=== PATIENT | male | born 1945 | race Caucasian/White ===

== ENCOUNTER 2016-08-08 11:26 | Outpatient (CLI) | payer MEDICARE, OTHER | END 2016-08-08 11:27 | disposition critical access hospital (66) | LOC: EMS 11:26 | PROVIDERS: ATTEND Surgery | DX: R06.89 Other abnormalities of breathing (principal); T17.908A Unspecified foreign body in respiratory tract, part unspecified causing other injury, initial encounter | CPT/HCPCS: A0425; A0427 ==

== ENCOUNTER 2016-08-08 12:11 | Inpatient (IN) | payer MEDICARE, OTHER ==
--- NOTE | 2016-08-08 12:48 | ED Physician Documentation ---
PD HPI DYSPNEA - Stated complaint Stated Complaint: POSS ASPIRATION - Chief complaint Chief Complaint: Resp - History obtained from History obtained from: Patient (he is nonverbal due to dementia), Caregiver - History of Present Illness Timing - onset: How many days ago (he has had some cough and congestion for 4-5 days, with low temp yesterday. Some less appetite for few days. This morning had a coughing/choking episode about 5-10 minutes after eating and had congested sound and trouble breathing. Caregiver concerned for aspiration. He was having work of breathing and wheezing, and EMS noted his sats to be in 70s% initially. Improved on oxygen.) Timing - onset during: Rest (had just finished eating this morning when breathing worsened with coughing/choking symptoms.) Timing - details: Abrupt onset, Still present Inciting event(s): URI Associated symptoms: Fever, Cough, Wheezing. No: Hemoptysis, Palpitations, Bilateral edema Review of Systems Unable to obtain: Dementia, Other (info from caregiver) Constitutional: reports: Fever (yesterday) Respiratory: reports: Dyspnea, Cough GI: reports: Diarrhea (softer stool for 1-2 days). denies: Vomiting : reports: Incontinent Skin: denies: Rash, Lesions Neurologic: reports: Generalized weakness Endocrine: denies: Weight loss Immunocompromised: denies: Immunocompromised PD PAST MEDICAL HISTORY - Past Medical History Respiratory: Pneumonia Neuro: Dementia, Head injury Psych: Anxiety Musculoskeletal: Chronic back pain - Past Surgical History Past Surgical History: No - Present Medications Home Medications: Ambulatory Orders Medication Instructions Recorded Confirmed Donepezil HCl [Aricept] 10 mg PO DAILY 06/08/14 08/08/16 Bacillus Coagulans [Probiotic] 1 cap PO DAILY 01/27/16 08/08/16 Sennosides [Senna] 8.6 mg PO DAILY 01/27/16 08/08/16 - Allergies Allergies/Adverse Reactions: Allergies Allergy/AdvReac Type Severity Reaction Status Date / Time No Known Drug Allergies Allergy Verified 01/27/16 20:29 - Social History Does the pt smoke?: No Smoking Status: Never smoker Does the pt drink ETOH?: No Does the pt have substance abuse?: No - Immunizations Immunizations are current?: Yes - POLST Patient has POLST: Yes PD ED PE NORMAL - Vitals Vital signs reviewed: Yes - General General: Well developed/nourished, Other (anxious and shaky currently; nonverbal at baseline.) - HEENT HEENT: Pharynx benign - Neck Neck: Supple, no meningeal sign, No adenopathy - Cardiac Cardiac: No murmur. No: RRR (regular but tachy. tachy but regular) - Respiratory Respiratory: No: Clear bilaterally (coarse on right with scattered diffuse wheezing. Fast breathing but no retractions. ) - Abdomen Abdomen: Soft, Non tender - Derm Derm: Normal color, Warm and dry - Extremities Extremities: Normal ROM s pain, No edema, No calf tenderness / cord - Neuro Neuro: No motor deficit, No sensory deficit. No: Normal speech - Psych Psych: No: Normal affect (flat) Results - Vitals Vitals: Vital Signs - 24 hr 08/08/16 08/08/16 08/08/16 12:08 13:34 14:12 Temperature 37.1 C Heart Rate 124 H 129 H 131 H Respiratory 18 20 30 H Rate Blood Pressure 125/68 147/93 H O2 Saturation 90 L 94 Oxygen O2 Source [With Activity] Room air O2 Source Nasal cannula Oxygen Flow Rate 4 - Labs Labs: Laboratory Tests 08/08/16 08/08/16 13:30 13:30 WBC 10.7 RBC 4.89 Hgb 15.1 Hct 44.8 MCV 91.6 MCH 30.8 MCHC 33.6 RDW 12.9 Plt Count 303 MPV 8.0 Neut # 8.1 H Lymph # 2.0 Randolph # 0.3 Eos # 0.2 Baso # 0.1 Absolute Nucleated RBC 0.00 Nucleated RBCs 0.0 Sodium 140 Potassium 4.4 Chloride 101 Carbon Dioxide 26 Anion Gap 13.0 BUN 19 Creatinine 1.1 Estimated GFR (MDRD) 66 L Glucose 156 H Calcium 9.3 Total Bilirubin 0.8 AST 37 ALT 39 Alkaline Phosphatase 51 Total Protein 7.7 Albumin 4.2 Globulin 3.5 Albumin/Globulin Ratio 1.2 Lipase 62 H - Rads (name of study) chest Radiology: Prelim report reviewed, EMP read contemporaneously (significant infiltrates diffusely, mainly right, c/w atypical pneumonia or aspiration pneumonitis. ) PD MEDICAL DECISION MAKING - ED course Complexity details: considered differential (Likely has CAP or recent aspiration with pneumonia this past week and now new episode of aspiration clinically. Has low sats initially but improved with neb and oxygen. Resting easy and lungs are clearer sounding. However, does have significant infiltrates. Even though labs are good, I think he is going to be worse later today and had low sats coming to ED. ), d/w patient, d/w mergers and acquisitions consultant (Dr. Barry) Departure - Departure Disposition: 66 [facility] DC/Xfer Clinical Impression: Hypoxia Pneumonia Qualifiers: Pneumonia type: due to unspecified organism Laterality: right Lung location: unspecified part of lung Qualified Code(s): J18.9 - Pneumonia, unspecified organism Aspiration pneumonia Qualifiers: Aspiration pneumonia type: unspecified Laterality: right Lung location: unspecified part of lung Qualified Code(s): J69.0 - Pneumonitis due to inhalation of food and vomit Dementia Qualifiers: Dementia type: unspecified type Dementia behavioral disturbance: without behavioral disturbance Qualified Code(s): F03.90 - Unspecified dementia without behavioral disturbance Condition: Stable Record reviewed to determine appropriate education?: Yes
[2016-08-08] MEDS ORDERED: DEXAMETHASONE 10 MG/ML VIAL IVP STA (12:58)
[2016-08-08] MEDS ORDERED: FAMOTIDINE 20 MG/50 ML 50 ML IV ONE ×2 (12:58→13:03)
[2016-08-08] MEDS ORDERED: IPRATROPIUM/ALBUTEROL 3 ML NEB INH STA (12:58)
[2016-08-08] MEDS ORDERED: cefTRIAXone 1 GM in SODIUM CHLORIDE 0.9% MINIBAG 100 ML IV STA (12:59)
[2016-08-08] MEDS ORDERED: DEXAMETHASONE 10 MG/ML VIAL ONE (13:03)
[2016-08-08] MEDS ORDERED: cefTRIAXone 1 GM VIAL ONE (13:03)
[2016-08-08] MEDS ORDERED: KETOROLAC 60 MG/2 ML VIAL IVP STA (13:13)
[2016-08-08] MEDS ORDERED: SODIUM CHLORIDE 0.9% 1,000 ML IV ONE (13:13)
[2016-08-08] MEDS ORDERED: ONDANSETRON 4 MG/2 ML VIAL ONE (13:14)
[2016-08-08] MEDS ORDERED: ONDANSETRON 4 MG/2 ML VIAL IVP STA (13:14)
[2016-08-08] MEDS ORDERED: IPRATROPIUM/ALBUTEROL 3 ML NEB INH ONE (13:24)
[2016-08-08] MEDS ORDERED: KETOROLAC 30 MG/ML VIAL ONE (13:35)
[2016-08-08 13:38] LABS: BASOPHILS # (AUTO) 0.1 10^3/uL (0.0-0.1); BASOPHILS % (AUTO) 0.8 %; EOSINOPHILS # (AUTO) 0.2 10^3/uL (0.0-0.7); EOSINOPHILS % (AUTO) 1.6 %; HCT - HEMATOCRIT 44.8 % (42.0-52.0); HGB - HEMOGLOBIN 15.1 g/dL (14.0-18.0); LYMPHOCYTES % (AUTO) 18.9 %; MEAN CORPUSCULAR HEMOGLOBIN 30.8 pg (27.0-31.0); MEAN CORPUSCULAR HGB CONC 33.6 g/dL (32.0-36.0); MEAN CORPUSCULAR VOLUME 91.6 fL (80.0-94.0); MONOCYTES # (AUTO) 0.3 10^3/uL (0.0-1.0); NEUTROPHILS # (AUTO) 8.1 10^3/uL (1.5-6.6); NEUTROPHILS % (AUTO) 75.7 %; RED BLOOD COUNT 4.89 10^6/uL (4.70-6.10); RED CELL DISTRIBUTION WIDTH 12.9 % (12.0-15.0); UNCORRECTED WHITE BLOOD COUNT 10.7 x10^3/uL; WHITE BLOOD COUNT 10.7 x10^3/uL (4.8-10.8)
[2016-08-08 13:58] LABS: ALBUMIN/GLOBULIN RATIO 1.2 (1.0-2.2); BILIRUBIN,TOTAL 0.8 mg/dL (0.2-1.0); CALCIUM 9.3 mg/dL (8.5-10.3); CREATININE 1.1 mg/dL (0.6-1.2); TOTAL PROTEIN 7.7 g/dL (6.7-8.2)
[2016-08-08 13:59] LABS: POTASSIUM 4.4 mmol/L (3.5-5.0)
--- NOTE | 2016-08-08 14:37 | XRAY Preliminary Report ---
Exam: XR Chest 1 View IMPRESSION: Extensive multifocal infiltrates, predominantly on the right; nodularity suggests viral o r mycoplasmal etiology. Cannot exclude aspiration. [facility] SITE ID: [id number]
--- NOTE | 2016-08-08 14:40 | XRAY Report ---
EXAM: CHEST RADIOGRAPHY EXAM DATE: 08/08/2016 02:18 PM. CLINICAL HISTORY: Cough, low oxygen saturation. COMPARISON: 01/27/2016. TECHNIQUE: 1 view. FINDINGS: Lungs/Pleura: Extensive infiltration throughout the right lung with mild nodularity. Minimal prominen ce of lung markings left base. No consolidation, definite effusion, or pneumothorax. Mediastinum: Within exam limitations, cardiomediastinal contour is normal. Upper lobe vessels not dis tended. Other: Old rib fractures. IMPRESSION: Extensive multifocal infiltrates, predominantly on the right; nodularity suggests viral o r mycoplasmal etiology. Cannot exclude aspiration. [facility] Referring Provider Line: [phone] SITE ID: [id number]
[2016-08-08] MEDS ORDERED: AZITHROMYCIN INJ 500 MG in SODIUM CHLORIDE 0.9% 250 ML IV STA (14:51)
[2016-08-08] MEDS ORDERED: SODIUM CHLORIDE FLUSH 0.9% 10 ML SYRINGE IVP PRN (15:28)
[2016-08-08] MEDS ORDERED: ALBUTEROL NEB 2.5 MG/3 ML INH STA (15:28)
[2016-08-08] MEDS ORDERED: ONDANSETRON ODT 4 MG TABLET TL PRN (15:51)
[2016-08-08] MEDS ORDERED: TEMAZEPAM 15 MG CAPSULE PO PRN (15:51)
[2016-08-08] MEDS ORDERED: ONDANSETRON 4 MG/2 ML VIAL IVP PRN (15:51)
[2016-08-08] MEDS ORDERED: ACETAMINOPHEN 325 MG TABLET PO PRN (15:51)
[2016-08-08] MEDS ORDERED: ALBUTEROL NEB 2.5 MG/3 ML INH ONE (16:04)
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
[2016-08-08] MEDS ORDERED: IPRATROPIUM/ALBUTEROL 3 ML NEB INH PRN (16:38)
[2016-08-08] MEDS ORDERED: SENNA 8.6 MG TABLET PO PRN (16:39)
[2016-08-08] MEDS: SODIUM CHLORIDE 0.9% 1,000 ML IV SCH (17:27)
[2016-08-08] MEDS: DONEPEZIL 5 MG TABLET PO SCH (21:06)
[2016-08-08] MEDS: SODIUM CHLORIDE FLUSH 0.9% 10 ML SYRINGE IVP SCH (21:07)
[2016-08-08] MEDS: ACETAMINOPHEN 500 MG TABLET PO SCH (21:07)
[2016-08-09] MEDS: SODIUM CHLORIDE 0.9% 1,000 ML IV SCH ×3 (02:41→22:58)
[2016-08-09] MEDS: SODIUM CHLORIDE FLUSH 0.9% 10 ML SYRINGE IVP SCH ×3 (05:19→20:49)
[2016-08-09] MEDS: PANTOPRAZOLE 40 MG TABLET PO SCH (06:08)
[2016-08-09] MEDS: ACETAMINOPHEN 500 MG TABLET PO SCH ×2 (09:52→20:48)
[2016-08-09] MEDS: POLYETHYLENE GLYCOL 3350 17 GM PACKET PO SCH (09:53)
[2016-08-09] MEDS: cefTRIAXone 1 GM in SODIUM CHLORIDE 0.9% MINIBAG 100 ML IV SCH (09:53)
[2016-08-09] MEDS: AZITHROMYCIN INJ 500 MG in SODIUM CHLORIDE 0.9% 250 ML IV SCH (10:49)
--- NOTE | 2016-08-09 12:24 | PROVIDER PROGRESS NOTE ---
Assessment/Plan - Problem List (1) CAP (community acquired pneumonia) Assessment/Plan: Improved on Antibiotics. No aspiration on swallow evaluation by clinical staff today. Afebrile. No sign of sepsis. Influenza negative. Plan: Continue antibiotics. Anticipate discharge 2 days (2) Dementia Qualifiers: Dementia type: other frontotemporal dementia Dementia behavioral disturbance: without behavioral disturbance Qualified Code(s): G31.09 - Other frontotemporal dementia; F02.80 - Dementia in other diseases classified elsewhere without behavioral disturbance Assessment/Plan: Continue home medications (3) Chronic pain Assessment/Plan: Controlled on current medications - Current Meds Current Meds: Current Medications Generic Name Dose Route Start Last Admin Trade Name Freq PRN Reason Stop Dose Admin Acetaminophen 1,000 mg 08/08/16 21:00 08/09/16 09:52 Tylenol PO 1,000 mg BID REYES Administration Donepezil HCl 10 mg 08/08/16 21:00 08/08/16 21:06 Aricept PO 10 mg QPM REYES Administration Sodium Chloride 1,000 mls @ 100 mls/hr 08/08/16 17:30 08/09/16 02:41 Normal Saline 0.9% IV 100 mls/hr .Q10H REYES Administration Azithromycin 500 mg/ Sodium 250 mls @ 250 mls/hr 08/09/16 10:00 08/09/16 10:49 Chloride IV 250 mls/hr DAILY@1000 REYES Administration Ceftriaxone Sodium 1 gm/ 100 mls @ 200 mls/hr 08/09/16 09:00 08/09/16 09:53 Sodium Chloride IV 200 mls/hr DAILY REYES Administration Pantoprazole Sodium 40 mg 08/09/16 07:00 08/09/16 06:08 Protonix PO Not Given QDAC REYES Polyethylene Glycol 17 gm 08/09/16 09:00 08/09/16 09:53 Miralax PO 17 gm DAILY REYES Administration Sodium Chloride 10 ml 08/08/16 22:00 08/09/16 05:19 Normal Saline Flush 0.9% IVP Not Given Q8HR REYES - Lab Result Lab results reviewed: Yes Fish Bone Diagrams: 08/08/16 13:30 08/08/16 13:30 - Diagnostic Imaging Results Diagnostic Imaging Results: positive: Final report reviewed - Additional Planning Condition/Complexity: Stable My Orders: My Active Orders 08/08/16 15:51 Acetaminophen [Tylenol] 650 mg PO Q4HR PRN Ondansetron Inj [Zofran Inj] 4 mg IVP Q6HR PRN Ondansetron Odt [Zofran Odt] 4 mg TL Q6HR PRN Temazepam [Restoril] 15 mg PO QPM PRN 08/08/16 15:57 SCDs [RC] QSHIFT 08/08/16 16:38 Ipratropium/Albuterol [Duoneb] 3 ml INH Q4HR PRN 08/08/16 16:39 Senna [Senokot] 8.6 mg PO DAILY PRN 08/08/16 17:30 Sodium Chloride 0.9% [Normal Saline 0.9%] 1,000 ml IV 100 mls/hr 08/08/16 20:52 RT [Nebulizer/MDI Tx.] [RC] QID 08/08/16 21:00 Acetaminophen [Tylenol] 1,000 mg PO BID Donepezil [Aricept] 10 mg PO QPM 08/09/16 07:00 Pantoprazole [Protonix] 40 mg PO QDAC 08/09/16 09:00 cefTRIAXone [Rocephin] 1 gm Sodium Chloride 0.9% Minibag [Normal Saline 0.9% Minibag] 100 ml IV DAILY 08/09/16 10:00 Azithromycin Inj [Zithromax Inj] 500 mg Sodium Chloride 0.9% [Normal Saline 0.9%] 250 ml IV DAILY@1000 08/09/16 Lunch DIET [Soft Mechanical Diet] [DIET] Time Spent: 15-30 minutes Subjective - Subjective Patient Reports: Other (Pt unable to communicate. Does not appear uncomfortable or dyspneaic.) Nursing Reports: Other (PAssed bedside swallow eval.) Objective Vital Signs: Vital Signs - 24 hr 08/08/16 08/08/16 08/08/16 16:06 16:12 17:10 Temperature 38.6 C H Heart Rate 121 H 111 H Heart Rate [ 109 H Brachial] Respiratory 24 16 16 Rate Blood Pressure 123/78 Blood Pressure 123/65 [Left Brachial artery] O2 Saturation 100 93 08/08/16 08/09/16 08/09/16 20:38 00:21 09:40 Temperature 37.0 C 37.9 C H 36.7 C Heart Rate Heart Rate [ 101 H 76 Brachial] Respiratory 20 24 Rate Blood Pressure Blood Pressure 115/65 124/74 [Left Brachial artery] O2 Saturation 96 95 96 Oxygen O2 Source Room air I&O (Last 24 Hrs): Intake and Output Totals x24h 08/07/16 08/08/16 08/09/16 23:59 23:59 23:59 Intake Total 426 Balance 426 General: Alert, No acute distress HEENT: PERRLA, EOMI Neck: No JVD Neuro: Disoriented, Other (nonverbal) Cardiovascular: Regular rate Respiratory: No respiratory distress Abdomen: Normal bowel sounds Extremities: No edema Skin: No breakdown - Results Results: Laboratory Results WBC 10.7 x10^3/uL (4.8-10.8) 08/08/16 13:30 RBC 4.89 10^6/uL (4.70-6.10) 08/08/16 13:30 Hgb 15.1 g/dL (14.0-18.0) 08/08/16 13:30 Hct 44.8 % (42.0-52.0) 08/08/16 13:30 MCV 91.6 fL (80.0-94.0) 08/08/16 13:30 MCH 30.8 pg (27.0-31.0) 08/08/16 13:30 MCHC 33.6 g/dL (32.0-36.0) 08/08/16 13:30 RDW 12.9 % (12.0-15.0) 08/08/16 13:30 Plt Count 303 10^3/uL (130-450) 08/08/16 13:30 MPV 8.0 fL (7.4-11.4) 08/08/16 13:30 Neut # 8.1 10^3/uL (1.5-6.6) H 08/08/16 13:30 Lymph # 2.0 10^3/uL (1.5-3.5) 08/08/16 13:30 [place] # 0.3 10^3/uL (0.0-1.0) 08/08/16 13:30 Eos # 0.2 10^3/uL (0.0-0.7) 08/08/16 13:30 Baso # 0.1 10^3/uL (0.0-0.1) 08/08/16 13:30 Absolute Nucleated RBC 0.00 x10^3/uL 08/08/16 13:30 Nucleated RBCs 0.0 /100WBC 08/08/16 13:30 Sodium 140 mmol/L (135-145) 08/08/16 13:30 Potassium 4.4 mmol/L (3.5-5.0) 08/08/16 13:30 Chloride 101 mmol/L (101-111) 08/08/16 13:30 Carbon Dioxide 26 mmol/L (21-32) 08/08/16 13:30 Anion Gap 13.0 (6-13) 08/08/16 13:30 BUN 19 mg/dL (6-20) 08/08/16 13:30 Creatinine 1.1 mg/dL (0.6-1.2) 08/08/16 13:30 Estimated GFR (MDRD) 66 (>89) L 08/08/16 13:30 Glucose 156 mg/dL (70-100) H 08/08/16 13:30 Calcium 9.3 mg/dL (8.5-10.3) 08/08/16 13:30 Total Bilirubin 0.8 mg/dL (0.2-1.0) 08/08/16 13:30 AST 37 IU/L (10-42) 08/08/16 13:30 ALT 39 IU/L (10-60) 08/08/16 13:30 Alkaline Phosphatase 51 IU/L (42-121) 08/08/16 13:30 Total Protein 7.7 g/dL (6.7-8.2) 08/08/16 13:30 Albumin 4.2 g/dL (3.2-5.5) 08/08/16 13:30 Globulin 3.5 g/dL (2.1-4.2) 08/08/16 13:30 Albumin/Globulin Ratio 1.2 (1.0-2.2) 08/08/16 13:30 Lipase 62 U/L (22-51) H 08/08/16 13:30 Influenza A (Rapid) Negative (Negative) 08/08/16 20:02 Influenza B (Rapid) Negative (Negative) 08/08/16 20:02 Influenza Types A,B Ag - 08/08/16 20:02
[2016-08-09] MEDS: DONEPEZIL 5 MG TABLET PO SCH (20:49)
[2016-08-10] MEDS: PANTOPRAZOLE 40 MG TABLET PO SCH (05:58)
[2016-08-10] MEDS: SODIUM CHLORIDE FLUSH 0.9% 10 ML SYRINGE IVP SCH ×3 (05:59→20:48)
[2016-08-10] MEDS: ACETAMINOPHEN 500 MG TABLET PO SCH ×2 (08:52→20:48)
[2016-08-10] MEDS: cefTRIAXone 1 GM in SODIUM CHLORIDE 0.9% MINIBAG 100 ML IV SCH (08:52)
[2016-08-10] MEDS: POLYETHYLENE GLYCOL 3350 17 GM PACKET PO SCH (08:53)
[2016-08-10] MEDS: SODIUM CHLORIDE 0.9% 1,000 ML IV SCH ×2 (09:03→20:48)
[2016-08-10] MEDS: AZITHROMYCIN INJ 500 MG in SODIUM CHLORIDE 0.9% 250 ML IV SCH (10:47)
--- NOTE | 2016-08-10 14:04 | PROVIDER PROGRESS NOTE ---
Assessment/Plan - Problem List (1) CAP (community acquired pneumonia) Assessment/Plan: Consistent with CAP./ Tolerating ABX. No further chills. Not febrile. Anticipate discharge tomorrow. Radha is concerned with aspiration given his frontal lobe dementia. (2) Dementia Qualifiers: Dementia type: other frontotemporal dementia Dementia behavioral disturbance: without behavioral disturbance Qualified Code(s): G31.09 - Other frontotemporal dementia; F02.80 - Dementia in other diseases classified elsewhere without behavioral disturbance Assessment/Plan: Continued home medications. Family wishes to speak to Palliative care. They do not want to stay in the hospital for this but are interested in information and would be ok to set up an OP visit. (3) Chronic pain Assessment/Plan: Appears comfortable on current medications. - Current Meds Current Meds: Current Medications Generic Name Dose Route Start Last Admin Trade Name Freq PRN Reason Stop Dose Admin Acetaminophen 1,000 mg 08/08/16 21:00 08/10/16 08:52 Tylenol PO 1,000 mg BID REYES Administration Donepezil HCl 10 mg 08/08/16 21:00 08/09/16 20:49 Aricept PO 10 mg QPM REYES Administration Sodium Chloride 1,000 mls @ 100 mls/hr 08/08/16 17:30 08/10/16 09:03 Normal Saline 0.9% IV 100 mls/hr .Q10H REYES Administration Azithromycin 500 mg/ Sodium 250 mls @ 250 mls/hr 08/09/16 10:00 08/10/16 10:47 Chloride IV 250 mls/hr DAILY@1000 REYES Administration Ceftriaxone Sodium 1 gm/ 100 mls @ 200 mls/hr 08/09/16 09:00 08/10/16 08:52 Sodium Chloride IV 200 mls/hr DAILY REYES Administration Pantoprazole Sodium 40 mg 08/09/16 07:00 08/10/16 05:58 Protonix PO Not Given QDAC REYES Polyethylene Glycol 17 gm 08/09/16 09:00 08/10/16 08:53 Miralax PO 17 gm DAILY REYES Administration Senna 8.6 mg 08/08/16 16:39 08/10/16 08:54 Senokot PO 8.6 mg DAILY PRN Administration Constipation Sodium Chloride 10 ml 08/08/16 22:00 08/10/16 13:26 Normal Saline Flush 0.9% IVP Not Given Q8HR REYES - Lab Result Lab results reviewed: Yes Fish Bone Diagrams: 08/08/16 13:30 08/08/16 13:30 - Additional Planning Plan Discussed with:: Family Time Spent: 15-30 minutes Subjective - Subjective Patient Reports: Other (Unable to obtain subjective HX as PT is nonverbal.) Objective Vital Signs: Vital Signs - 24 hr 08/09/16 08/09/16 08/09/16 15:50 19:45 20:35 Temperature 37.1 C Heart Rate 80 Heart Rate [ 81 Brachial] Respiratory 20 20 Rate Blood Pressure 110/56 L [Left Brachial artery] O2 Saturation 98 94 08/10/16 08/10/16 08/10/16 01:14 07:50 08:47 Temperature 37.2 C 38.1 C H Heart Rate 90 Heart Rate [ 79 81 Brachial] Respiratory 20 16 20 Rate Blood Pressure 106/57 L 111/53 L [Left Brachial artery] O2 Saturation 94 92 08/10/16 13:10 Temperature 36.6 C Heart Rate Heart Rate [ 82 Brachial] Respiratory Rate Blood Pressure 107/61 [Left Brachial artery] O2 Saturation Oxygen O2 Source Nasal cannula I&O (Last 24 Hrs): Intake and Output Totals x24h 08/08/16 08/09/16 08/10/16 23:59 23:59 23:59 Intake Total 426 2130 1266 Balance 426 2130 1266 General: Alert, No acute distress HEENT: PERRLA, EOMI Neck: No JVD Neuro: Disoriented, Other (nonverbal) Cardiovascular: Regular rate Respiratory: Chest non-tender, No respiratory distress, Rales Abdomen: Normal bowel sounds - Results Results: Laboratory Results WBC 10.7 x10^3/uL (4.8-10.8) 08/08/16 13:30 RBC 4.89 10^6/uL (4.70-6.10) 08/08/16 13:30 Hgb 15.1 g/dL (14.0-18.0) 08/08/16 13:30 Hct 44.8 % (42.0-52.0) 08/08/16 13:30 MCV 91.6 fL (80.0-94.0) 08/08/16 13:30 MCH 30.8 pg (27.0-31.0) 08/08/16 13:30 MCHC 33.6 g/dL (32.0-36.0) 08/08/16 13:30 RDW 12.9 % (12.0-15.0) 08/08/16 13:30 Plt Count 303 10^3/uL (130-450) 08/08/16 13:30 MPV 8.0 fL (7.4-11.4) 08/08/16 13:30 Neut # 8.1 10^3/uL (1.5-6.6) H 08/08/16 13:30 Lymph # 2.0 10^3/uL (1.5-3.5) 08/08/16 13:30 [place] # 0.3 10^3/uL (0.0-1.0) 08/08/16 13:30 Eos # 0.2 10^3/uL (0.0-0.7) 08/08/16 13:30 Baso # 0.1 10^3/uL (0.0-0.1) 08/08/16 13:30 Absolute Nucleated RBC 0.00 x10^3/uL 08/08/16 13:30 Nucleated RBCs 0.0 /100WBC 08/08/16 13:30 Sodium 140 mmol/L (135-145) 08/08/16 13:30 Potassium 4.4 mmol/L (3.5-5.0) 08/08/16 13:30 Chloride 101 mmol/L (101-111) 08/08/16 13:30 Carbon Dioxide 26 mmol/L (21-32) 08/08/16 13:30 Anion Gap 13.0 (6-13) 08/08/16 13:30 BUN 19 mg/dL (6-20) 08/08/16 13:30 Creatinine 1.1 mg/dL (0.6-1.2) 08/08/16 13:30 Estimated GFR (MDRD) 66 (>89) L 08/08/16 13:30 Glucose 156 mg/dL (70-100) H 08/08/16 13:30 Calcium 9.3 mg/dL (8.5-10.3) 08/08/16 13:30 Total Bilirubin 0.8 mg/dL (0.2-1.0) 08/08/16 13:30 AST 37 IU/L (10-42) 08/08/16 13:30 ALT 39 IU/L (10-60) 08/08/16 13:30 Alkaline Phosphatase 51 IU/L (42-121) 08/08/16 13:30 Total Protein 7.7 g/dL (6.7-8.2) 08/08/16 13:30 Albumin 4.2 g/dL (3.2-5.5) 08/08/16 13:30 Globulin 3.5 g/dL (2.1-4.2) 08/08/16 13:30 Albumin/Globulin Ratio 1.2 (1.0-2.2) 08/08/16 13:30 Lipase 62 U/L (22-51) H 08/08/16 13:30 Influenza A (Rapid) Negative (Negative) 08/08/16 20:02 Influenza B (Rapid) Negative (Negative) 08/08/16 20:02 Influenza Types A,B Ag - 08/08/16 20:02
[2016-08-10] MEDS: DONEPEZIL 5 MG TABLET PO SCH (20:48)
[2016-08-11] MEDS: SODIUM CHLORIDE FLUSH 0.9% 10 ML SYRINGE IVP SCH ×3 (06:47→20:08)
[2016-08-11] MEDS: PANTOPRAZOLE 40 MG TABLET PO SCH (06:47)
[2016-08-11] MEDS: SODIUM CHLORIDE 0.9% 1,000 ML IV SCH ×2 (06:49→18:15)
--- NOTE | 2016-08-11 08:26 | XRAY Preliminary Report ---
Exam: XR Chest 1 View IMPRESSION: Mildly lower lung volumes with mild apparent increased bilateral groundglass and patchy o pacities, right greater than left. [facility] SITE ID: [id number]
--- NOTE | 2016-08-11 08:29 | XRAY Report ---
EXAM: CHEST RADIOGRAPHY EXAM DATE: 08/11/2016 08:13 AM. CLINICAL HISTORY: Pneumonia. COMPARISON: 08/08/2016. TECHNIQUE: 1 view. FINDINGS: Lungs/Pleura: Mildly lower lung volumes with mild apparent increased bilateral groundglass and patchy opacities, right greater than left. No pneumothorax. No large effusion. Mediastinum: Cardiac silhouette size appears stable. Other: None. IMPRESSION: Mildly lower lung volumes with mild apparent increased bilateral groundglass and patchy o pacities, right greater than left. [facility] Referring Provider Line: [phone] SITE ID: [id number]
[2016-08-11] MEDS: cefTRIAXone 1 GM in SODIUM CHLORIDE 0.9% MINIBAG 100 ML IV SCH (09:07)
[2016-08-11] MEDS: ACETAMINOPHEN 500 MG TABLET PO SCH ×2 (09:08→20:07)
[2016-08-11] MEDS: POLYETHYLENE GLYCOL 3350 17 GM PACKET PO SCH (09:08)
[2016-08-11] MEDS: AZITHROMYCIN INJ 500 MG in SODIUM CHLORIDE 0.9% 250 ML IV SCH (10:15)
--- NOTE | 2016-08-11 16:36 | PROVIDER PROGRESS NOTE ---
Assessment/Plan - Problem List (1) CAP (community acquired pneumonia) Assessment/Plan: PT is stable./ chest xray with increased ground glass and patchy opacities. Continue IV antibiotics. Will have Speech see in AM for formal swallow evaluation. Evaluation for home O2 (2) Dementia Qualifiers: Dementia type: other frontotemporal dementia Dementia behavioral disturbance: without behavioral disturbance Qualified Code(s): G31.09 - Other frontotemporal dementia; F02.80 - Dementia in other diseases classified elsewhere without behavioral disturbance Assessment/Plan: No changes today (3) Chronic pain Assessment/Plan: Controlled on current regimen - Current Meds Current Meds: Current Medications Generic Name Dose Route Start Last Admin Trade Name Freq PRN Reason Stop Dose Admin Acetaminophen 1,000 mg 08/08/16 21:00 08/11/16 09:08 Tylenol PO 1,000 mg BID REYES Administration Donepezil HCl 10 mg 08/08/16 21:00 08/10/16 20:48 Aricept PO 10 mg QPM REYES Administration Sodium Chloride 1,000 mls @ 100 mls/hr 08/08/16 17:30 08/11/16 06:49 Normal Saline 0.9% IV 100 mls/hr .Q10H REYES Administration Azithromycin 500 mg/ Sodium 250 mls @ 250 mls/hr 08/09/16 10:00 08/11/16 10:15 Chloride IV 250 mls/hr DAILY@1000 REYES Administration Ceftriaxone Sodium 1 gm/ 100 mls @ 200 mls/hr 08/09/16 09:00 08/11/16 09:07 Sodium Chloride IV 200 mls/hr DAILY REYES Administration Pantoprazole Sodium 40 mg 08/09/16 07:00 08/11/16 06:47 Protonix PO Not Given QDAC REYES Polyethylene Glycol 17 gm 08/09/16 09:00 08/11/16 09:08 Miralax PO 17 gm DAILY REYES Administration Senna 8.6 mg 08/08/16 16:39 08/10/16 08:54 Senokot PO 8.6 mg DAILY PRN Administration Constipation Sodium Chloride 10 ml 08/08/16 22:00 08/11/16 13:14 Normal Saline Flush 0.9% IVP Not Given Q8HR REYES - Lab Result Lab results reviewed: Yes Fish Bone Diagrams: 08/08/16 13:30 08/08/16 13:30 - Diagnostic Imaging Results Diagnostic Imaging Results: positive: Prelim report reviewed, Final report reviewed - Additional Planning Condition/Complexity: Stable Plan Discussed with:: Family Time Spent: 15-30 minutes Subjective - Subjective Patient Reports: Other (PT is nonverbal. daughter at bedside feels he is doing well.) Nursing Reports: No Complaints Objective Vital Signs: Vital Signs - 24 hr 08/10/16 08/10/16 08/11/16 17:30 19:35 00:10 Temperature 37.1 C 36.9 C Heart Rate 85 Heart Rate [ Brachial] Heart Rate [ 91 79 Radial] Respiratory 24 18 16 Rate Blood Pressure [Left Brachial artery] Blood Pressure 111/59 L 144/80 H [Right Radial artery] O2 Saturation 96 95 08/11/16 08/11/16 07:20 09:38 Temperature 36.9 C Heart Rate 68 Heart Rate [ 94 Brachial] Heart Rate [ Radial] Respiratory 16 20 Rate Blood Pressure 143/82 H [Left Brachial artery] Blood Pressure [Right Radial artery] O2 Saturation 96 Oxygen O2 Source Nasal cannula I&O (Last 24 Hrs): Intake and Output Totals x24h 08/09/16 08/10/16 08/11/16 23:59 23:59 23:59 Intake Total 2130 3067 1293 Balance 2130 3067 1293 General: Alert HEENT: PERRLA, EOMI Neck: No JVD Neuro: CN 2-12 Grossly Intact Cardiovascular: Regular rate, Normal S1, Normal S2 Respiratory: No respiratory distress Abdomen: Soft Skin: No breakdown - Results Results: Laboratory Results WBC 10.7 x10^3/uL (4.8-10.8) 08/08/16 13:30 RBC 4.89 10^6/uL (4.70-6.10) 08/08/16 13:30 Hgb 15.1 g/dL (14.0-18.0) 08/08/16 13:30 Hct 44.8 % (42.0-52.0) 08/08/16 13:30 MCV 91.6 fL (80.0-94.0) 08/08/16 13:30 MCH 30.8 pg (27.0-31.0) 08/08/16 13:30 MCHC 33.6 g/dL (32.0-36.0) 08/08/16 13:30 RDW 12.9 % (12.0-15.0) 08/08/16 13:30 Plt Count 303 10^3/uL (130-450) 08/08/16 13:30 MPV 8.0 fL (7.4-11.4) 08/08/16 13:30 Neut # 8.1 10^3/uL (1.5-6.6) H 08/08/16 13:30 Lymph # 2.0 10^3/uL (1.5-3.5) 08/08/16 13:30 [place] # 0.3 10^3/uL (0.0-1.0) 08/08/16 13:30 Eos # 0.2 10^3/uL (0.0-0.7) 08/08/16 13:30 Baso # 0.1 10^3/uL (0.0-0.1) 08/08/16 13:30 Absolute Nucleated RBC 0.00 x10^3/uL 08/08/16 13:30 Nucleated RBCs 0.0 /100WBC 08/08/16 13:30 Sodium 140 mmol/L (135-145) 08/08/16 13:30 Potassium 4.4 mmol/L (3.5-5.0) 08/08/16 13:30 Chloride 101 mmol/L (101-111) 08/08/16 13:30 Carbon Dioxide 26 mmol/L (21-32) 08/08/16 13:30 Anion Gap 13.0 (6-13) 08/08/16 13:30 BUN 19 mg/dL (6-20) 08/08/16 13:30 Creatinine 1.1 mg/dL (0.6-1.2) 08/08/16 13:30 Estimated GFR (MDRD) 66 (>89) L 08/08/16 13:30 Glucose 156 mg/dL (70-100) H 08/08/16 13:30 Calcium 9.3 mg/dL (8.5-10.3) 08/08/16 13:30 Total Bilirubin 0.8 mg/dL (0.2-1.0) 08/08/16 13:30 AST 37 IU/L (10-42) 08/08/16 13:30 ALT 39 IU/L (10-60) 08/08/16 13:30 Alkaline Phosphatase 51 IU/L (42-121) 08/08/16 13:30 Total Protein 7.7 g/dL (6.7-8.2) 08/08/16 13:30 Albumin 4.2 g/dL (3.2-5.5) 08/08/16 13:30 Globulin 3.5 g/dL (2.1-4.2) 08/08/16 13:30 Albumin/Globulin Ratio 1.2 (1.0-2.2) 08/08/16 13:30 Lipase 62 U/L (22-51) H 08/08/16 13:30 Influenza A (Rapid) Negative (Negative) 08/08/16 20:02 Influenza B (Rapid) Negative (Negative) 08/08/16 20:02 Influenza Types A,B Ag - 08/08/16 20:02
[2016-08-11] MEDS: DONEPEZIL 5 MG TABLET PO SCH (20:07)
[2016-08-12] MEDS: SODIUM CHLORIDE 0.9% 1,000 ML IV SCH ×3 (03:54→14:52)
[2016-08-12] MEDS: SODIUM CHLORIDE FLUSH 0.9% 10 ML SYRINGE IVP SCH ×3 (05:20→21:21)
[2016-08-12 05:47] LABS: BASOPHILS # (AUTO) 0.1 10^3/uL (0.0-0.1); BASOPHILS % (AUTO) 0.7 %; EOSINOPHILS # (AUTO) 0.4 10^3/uL (0.0-0.7); EOSINOPHILS % (AUTO) 3.8 %; HCT - HEMATOCRIT 37.9 % (42.0-52.0); HGB - HEMOGLOBIN 12.7 g/dL (14.0-18.0); LYMPHOCYTES # (AUTO) 1.2 10^3/uL (1.5-3.5); LYMPHOCYTES % (AUTO) 10.3 %; MEAN CORPUSCULAR HEMOGLOBIN 30.6 pg (27.0-31.0); MEAN CORPUSCULAR HGB CONC 33.6 g/dL (32.0-36.0); MEAN CORPUSCULAR VOLUME 91.1 fL (80.0-94.0); MEAN PLATELET VOLUME 7.8 fL (7.4-11.4); MONOCYTES # (AUTO) 1.1 10^3/uL (0.0-1.0); NEUTROPHILS # (AUTO) 8.9 10^3/uL (1.5-6.6); NEUTROPHILS % (AUTO) 76.2 %; NUCLEATED RED BLOOD CELLS AUTO 0.1 /100WBC; RED BLOOD COUNT 4.16 10^6/uL (4.70-6.10); RED CELL DISTRIBUTION WIDTH 12.6 % (12.0-15.0); UNCORRECTED WHITE BLOOD COUNT 11.7 x10^3/uL; WHITE BLOOD COUNT 11.7 x10^3/uL (4.8-10.8)
[2016-08-12 05:56] LABS: ALBUMIN/GLOBULIN RATIO 0.9 (1.0-2.2); BILIRUBIN,TOTAL 0.7 mg/dL (0.2-1.0); CALCIUM 8.6 mg/dL (8.5-10.3); CREATININE 0.9 mg/dL (0.6-1.2); POTASSIUM 3.9 mmol/L (3.5-5.0); TOTAL PROTEIN 6.7 g/dL (6.7-8.2)
[2016-08-12] MEDS: PANTOPRAZOLE 40 MG VIAL IVP SCH (06:10)
[2016-08-12] MEDS: ACETAMINOPHEN 500 MG TABLET PO SCH ×2 (08:55→21:18)
[2016-08-12] MEDS: cefTRIAXone 1 GM in SODIUM CHLORIDE 0.9% MINIBAG 100 ML IV SCH (08:55)
[2016-08-12] MEDS: POLYETHYLENE GLYCOL 3350 17 GM PACKET PO SCH (08:56)
[2016-08-12] MEDS: AZITHROMYCIN INJ 500 MG in SODIUM CHLORIDE 0.9% 250 ML IV SCH (10:29)
--- NOTE | 2016-08-12 16:11 | PROVIDER PROGRESS NOTE ---
Assessment/Plan - Problem List (1) CAP (community acquired pneumonia) Assessment/Plan: PT with CAP and suspect aspiration pneumonia as well. Swallow evaluation today demonstrated a concern for aspiration risk. PT will Continue on ABX., Changes made to diet to correspond with swallow eval results and Speech recommendations for moist pureed diet, spoon thick liquids, meds crushed in yogurt and applesauce. 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 Has care givers at home. Suspect aspiration is related to advance in his disease. No changes today (3) Chronic pain Assessment/Plan: No indications for discomfort today (4) Aspiration into airway Qualifiers: Encounter type: initial encounter Qualified Code(s): T17.908A - Unspecified foreign body in respiratory tract, part unspecified causing other injury, initial encounter Assessment/Plan: PT with speech swallow evaluation today. Strong indication of aspiration risk, weak cough and holding food in his mouth. PT missing most of lower dentition. Recommendations for moist pureed diet. Spoon thickened liquid and meds crushed in yogurt or applesauce See Report for details. - Current Meds Current Meds: Current Medications Generic Name Dose Route Start Last Admin Trade Name Freq PRN Reason Stop Dose Admin Acetaminophen 1,000 mg 08/08/16 21:00 08/12/16 08:55 Tylenol PO 1,000 mg BID REYES Administration Donepezil HCl 10 mg 08/08/16 21:00 08/11/16 20:07 Aricept PO 10 mg QPM REYES Administration Sodium Chloride 1,000 mls @ 100 mls/hr 08/08/16 17:30 08/12/16 14:52 Normal Saline 0.9% IV 100 mls/hr .Q10H REYES Administration Azithromycin 500 mg/ Sodium 250 mls @ 250 mls/hr 08/09/16 10:00 08/12/16 10:29 Chloride IV 250 mls/hr DAILY@1000 REYES Administration Ceftriaxone Sodium 1 gm/ 100 mls @ 200 mls/hr 08/09/16 09:00 08/12/16 08:55 Sodium Chloride IV 200 mls/hr DAILY REYES Administration Pantoprazole Sodium 40 mg 08/12/16 07:00 08/12/16 06:10 Protonix IVP 40 mg QDAC REYES Administration Polyethylene Glycol 17 gm 08/09/16 09:00 08/12/16 08:56 Miralax PO Not Given DAILY REYES Senna 8.6 mg 08/08/16 16:39 08/10/16 08:54 Senokot PO 8.6 mg DAILY PRN Administration Constipation Sodium Chloride 10 ml 08/08/16 15:28 08/12/16 06:10 Normal Saline Flush 0.9% IVP 10 ml PRN PRN Administration NEEDED PER PROVIDER ORDERS Sodium Chloride 10 ml 08/08/16 22:00 08/12/16 14:04 Normal Saline Flush 0.9% IVP Not Given Q8HR REYES - Lab Result Lab results reviewed: Yes Fish Bone Diagrams: 08/12/16 05:33 08/12/16 05:33 - Additional Planning Condition/Complexity: Stable My Orders: My Active Orders 08/12/16 Dinner DIET [Dysphagia Puree Diet] [DIET] Plan Discussed with:: Other Time Spent: 15-30 minutes Subjective - Subjective Patient Reports: Other (Unable to verbalize. Poor interaction.) Nursing Reports: No Complaints Objective Vital Signs: Vital Signs - 24 hr 08/11/16 08/11/16 08/11/16 17:30 18:55 19:45 Temperature 36.7 C 38.1 C H 38 C H Heart Rate Heart Rate [ Brachial] Respiratory Rate Blood Pressure [Right Radial artery] O2 Saturation 08/11/16 08/11/16 08/12/16 20:55 21:30 00:53 Temperature 36.6 C 37.2 C Heart Rate 84 Heart Rate [ 82 Brachial] Respiratory 18 20 Rate Blood Pressure 155/83 H [Right Radial artery] O2 Saturation 98 08/12/16 09:28 Temperature 99.7 C H Heart Rate Heart Rate [ 82 Brachial] Respiratory 28 H Rate Blood Pressure 127/70 [Right Radial artery] O2 Saturation 94 Oxygen O2 Source Nasal cannula I&O (Last 24 Hrs): Intake and Output Totals x24h 08/10/16 08/11/16 08/12/16 23:59 23:59 23:59 Intake Total 3067 2251 1966 Balance 3067 2251 1966 General: Alert HEENT: PERRLA, EOMI Neck: No JVD Neuro: Disoriented Cardiovascular: Regular rate Respiratory: No respiratory distress, Rales Abdomen: Normal bowel sounds Extremities: No edema Skin: No breakdown - Results Results: Laboratory Results WBC 11.7 x10^3/uL (4.8-10.8) H 08/12/16 05:33 RBC 4.16 10^6/uL (4.70-6.10) L 08/12/16 05:33 Hgb 12.7 g/dL (14.0-18.0) L 08/12/16 05:33 Hct 37.9 % (42.0-52.0) L 08/12/16 05:33 MCV 91.1 fL (80.0-94.0) 08/12/16 05:33 MCH 30.6 pg (27.0-31.0) 08/12/16 05:33 MCHC 33.6 g/dL (32.0-36.0) 08/12/16 05:33 RDW 12.6 % (12.0-15.0) 08/12/16 05:33 Plt Count 301 10^3/uL (130-450) 08/12/16 05:33 MPV 7.8 fL (7.4-11.4) 08/12/16 05:33 Neut # 8.9 10^3/uL (1.5-6.6) H 08/12/16 05:33 Lymph # 1.2 10^3/uL (1.5-3.5) L 08/12/16 05:33 [place] # 1.1 10^3/uL (0.0-1.0) H 08/12/16 05:33 Eos # 0.4 10^3/uL (0.0-0.7) 08/12/16 05:33 Baso # 0.1 10^3/uL (0.0-0.1) 08/12/16 05:33 Absolute Nucleated RBC 0.01 x10^3/uL 08/12/16 05:33 Nucleated RBCs 0.1 /100WBC 08/12/16 05:33 Sodium 138 mmol/L (135-145) 08/12/16 05:33 Potassium 3.9 mmol/L (3.5-5.0) 08/12/16 05:33 Chloride 104 mmol/L (101-111) 08/12/16 05:33 Carbon Dioxide 26 mmol/L (21-32) 08/12/16 05:33 Anion Gap 8.0 (6-13) 08/12/16 05:33 BUN 9 mg/dL (6-20) 08/12/16 05:33 Creatinine 0.9 mg/dL (0.6-1.2) 08/12/16 05:33 Estimated GFR (MDRD) 83 (>89) L 08/12/16 05:33 Glucose 103 mg/dL (70-100) H 08/12/16 05:33 Calcium 8.6 mg/dL (8.5-10.3) 08/12/16 05:33 Total Bilirubin 0.7 mg/dL (0.2-1.0) 08/12/16 05:33 AST 34 IU/L (10-42) 08/12/16 05:33 ALT 31 IU/L (10-60) 08/12/16 05:33 Alkaline Phosphatase 45 IU/L (42-121) 08/12/16 05:33 Total Protein 6.7 g/dL (6.7-8.2) 08/12/16 05:33 Albumin 3.2 g/dL (3.2-5.5) 08/12/16 05:33 Globulin 3.5 g/dL (2.1-4.2) 08/12/16 05:33 Albumin/Globulin Ratio 0.9 (1.0-2.2) L 08/12/16 05:33 Lipase 62 U/L (22-51) H 08/08/16 13:30 Influenza A (Rapid) Negative (Negative) 08/08/16 20:02 Influenza B (Rapid) Negative (Negative) 08/08/16 20:02 Influenza Types A,B Ag - 08/08/16 20:02
[2016-08-12] MEDS: DONEPEZIL 5 MG TABLET PO SCH (21:17)
[2016-08-13] MEDS: SODIUM CHLORIDE 0.9% 1,000 ML IV SCH ×2 (01:02→12:21)
[2016-08-13] MEDS: PANTOPRAZOLE 40 MG VIAL IVP SCH (06:11)
[2016-08-13] MEDS: SODIUM CHLORIDE FLUSH 0.9% 10 ML SYRINGE IVP SCH ×3 (06:11→20:21)
[2016-08-13] MEDS: cefTRIAXone 1 GM in SODIUM CHLORIDE 0.9% MINIBAG 100 ML IV SCH (08:15)
[2016-08-13] MEDS: ACETAMINOPHEN 500 MG TABLET PO SCH ×2 (08:16→20:12)
[2016-08-13] MEDS: POLYETHYLENE GLYCOL 3350 17 GM PACKET PO SCH (08:18)
[2016-08-13 08:43] LABS: HCT - HEMATOCRIT 35.2 % (42.0-52.0); HGB - HEMOGLOBIN 11.9 g/dL (14.0-18.0); MEAN CORPUSCULAR HEMOGLOBIN 30.4 pg (27.0-31.0); MEAN CORPUSCULAR HGB CONC 33.8 g/dL (32.0-36.0); MEAN CORPUSCULAR VOLUME 89.9 fL (80.0-94.0); MEAN PLATELET VOLUME 7.7 fL (7.4-11.4); RED BLOOD COUNT 3.92 10^6/uL (4.70-6.10); RED CELL DISTRIBUTION WIDTH 12.8 % (12.0-15.0); WHITE BLOOD COUNT 10.9 x10^3/uL (4.8-10.8)
[2016-08-13] MEDS: AZITHROMYCIN INJ 500 MG in SODIUM CHLORIDE 0.9% 250 ML IV SCH (09:16)
--- NOTE | 2016-08-13 16:15 | CT Preliminary Report ---
Exam: CT Chest W/O IMPRESSION: 1. Extensive infiltration, right more than left, with right upper lobe consolidation and small pleura l effusions, right more than left. Overall extent of disease decreased a little since previous radiog raph. 2. Mildly prominent mediastinal lymph nodes, most likely lymphadenitis. [facility] SITE ID: [id number]
--- NOTE | 2016-08-13 16:18 | CT Report ---
EXAM: CT CHEST EXAM DATE: 08/13/2016 03:46 PM. CLINICAL HISTORY: Reevaluate infiltrate. COMPARISONS: Radiograph dated 08/11/2016. TECHNIQUE: Routine helical CT imaging was performed through the chest. IV contrast: None. Reconstructions: Coron al and sagittal. In accordance with CT protocol optimization, one or more of the following dose reduction techniques w ere utilized for this exam: automated exposure control, adjustment of mA and/or KV based on patient s ize, or use of iterative reconstructive technique. FINDINGS: Lungs/Pleura: Patchy infiltration with ill-defined nodularity throughout the right lung with consolid ation in the right upper lobe. Minimal contralateral involvement also predominantly upper lobe. Small -to-moderate right pleural effusion. Tiny left pleural effusion. No pneumothorax. Mediastinum: Normal heart size. No pericardial effusion. No coronary calcifications. Mildly enlarged mediastinal lymph nodes. An AP window node measures 1.0 cm on axial image 23. Subcarinal node measure s 1.4 cm on image 29. Bones: Unremarkable. Visualized Abdomen: Unremarkable. Other: None. IMPRESSION: 1. Extensive infiltration, right more than left, with right upper lobe consolidation and small pleura l effusions, right more than left. Overall extent of disease decreased a little since previous radiog raph. 2. Mildly prominent mediastinal lymph nodes, most likely lymphadenitis. [facility] Referring Provider Line: [phone] SITE ID: [id number]
--- NOTE | 2016-08-13 17:21 | PROVIDER PROGRESS NOTE ---
Subjective - Prog Note Date Prog Note Date: 08/13/16 Prog Note Time: 17:18 (late entry) - Subjective Subjective: non verbal, does not follow commands (squeeze hand, follow finger for EOM's) Current Medications - Current Medications Current Medications: Active Medications Generic Name Dose Route Start Last Admin Trade Name Freq PRN Reason Stop Dose Admin Acetaminophen 650 mg 08/08/16 15:51 08/12/16 17:15 Tylenol PO 650 mg Q4HR PRN Administration Pain 1 to 4 Acetaminophen 1,000 mg 08/08/16 21:00 08/13/16 08:16 Tylenol PO 1,000 mg BID REYES Administration Donepezil HCl 10 mg 08/08/16 21:00 08/12/16 21:17 Aricept PO 10 mg QPM REYES Administration Sodium Chloride 1,000 mls @ 100 mls/hr 08/08/16 17:30 08/13/16 12:21 Normal Saline 0.9% IV 100 mls/hr .Q10H REYES Administration Azithromycin 500 mg/ Sodium 250 mls @ 250 mls/hr 08/09/16 10:00 08/13/16 09:16 Chloride IV 250 mls/hr DAILY@1000 REYES Administration Ceftriaxone Sodium 1 gm/ 100 mls @ 200 mls/hr 08/09/16 09:00 08/13/16 08:15 Sodium Chloride IV 200 mls/hr DAILY REYES Administration Ondansetron HCl 4 mg 08/08/16 15:51 Zofran Odt TL Q6HR PRN Nausea / Vomiting Ondansetron HCl 4 mg 08/08/16 15:51 Zofran Inj IVP Q6HR PRN Nausea / Vomiting Pantoprazole Sodium 40 mg 08/12/16 07:00 08/13/16 06:11 Protonix IVP 40 mg QDAC REYES Administration Polyethylene Glycol 17 gm 08/09/16 09:00 08/13/16 08:18 Miralax PO 17 gm DAILY REYES Administration Senna 8.6 mg 08/08/16 16:39 08/10/16 08:54 Senokot PO 8.6 mg DAILY PRN Administration Constipation Sodium Chloride 10 ml 08/08/16 15:28 08/12/16 06:10 Normal Saline Flush 0.9% IVP 10 ml PRN PRN Administration NEEDED PER PROVIDER ORDERS Sodium Chloride 10 ml 08/08/16 22:00 08/13/16 14:11 Normal Saline Flush 0.9% IVP Not Given Q8HR REYES Temazepam 15 mg 08/08/16 15:51 Restoril PO QPM PRN Insomnia Donepezil HCl [Aricept] 10 mg PO QPM 06/08/14 Sennosides [Senna] 8.6 mg PO DAILY PRN 01/27/16 Objective - Vital Signs/Intake & Output Reviewed Vital Signs: Yes Vital Signs: Vital Signs x48h Temp Pulse Resp BP Pulse Ox 08/13/16 16:05 36.4 C L 77 24 135/69 H 96 Intake & Output: Intake & Output 08/10/16 08/11/16 08/12/16 08/13/16 23:59 23:59 23:59 23:59 Intake Total 3067 2251 2096 1690 Balance 3066 2259 6 1699 - Objective General Appearance: positive: Other (lying in bed comfortably, no meaningful interaction) ENT: positive: Other (repeatedly opening closing mouth, clicking teeth together) Respiratory: positive: Other (unlabored respirations, 96% sat on 2 liters, rare cough, chest remarkably clear to auscultation despite the XRay, and CT findings .) Cardiovascular: positive: Regular rate & rhythm, No murmur Abdomen: positive: Nml bowel sounds, No distention. negative: Tenderness Extremities: positive: No pedal edema, Other (SCD's on) Neurologic/Psychiatric: positive: Other (as above, does not respond meaningfully to questions, nor to commands eyes track evenly, no evident discomfort VEry still (does not participate ) in trying to roll for auscultation , nor lean forward) - Lab Results Fish Bones: 08/13/16 08:24 08/12/16 05:33 Other Labs: Lab Results x24hrs 08/13/16 Range/Units 08:24 WBC 10.9 H (4.8-10.8) x10^3/uL RBC 3.92 L (4.70-6.10) 10^6/uL Hgb 11.9 L (14.0-18.0) g/dL Hct 35.2 L (42.0-52.0) % MCV 89.9 (80.0-94.0) fL MCH 30.4 (27.0-31.0) pg MCHC 33.8 (32.0-36.0) g/dL RDW 12.8 (12.0-15.0) % Plt Count 343 (130-450) 10^3/uL MPV 7.7 (7.4-11.4) fL - Diagnostic Imaging Diagnostic Imaging Results: positive: Final report reviewed (CT chest: Patchy infiltration/ w/ ill defined nodularity thru R lung w/ consolidation RUL, minimal contralateral involement also mostly upper lobe. small to mod R effusion, Tiny left effusion. ; impression Extensive infiltration R>L w/ right upper lobe consolidation and small pleural effusions R > L. Overall extent of disease decreased a little since previous radiograph; Mildly prominent mediastinal lymph nodes, most likely lymphadenitis.) Assessment/Plan - Problem List (1) Aspiration pneumonia Impression: Aspiration Pneumonia Assessment/Plan: 08/13 although his oxygen requirement is stable, given the worsening noted on CXR 08/11, and continued fever (38) yesterday, viewed cXR w/ Dr. Andrews, extensive infiltrates as noted: pursued CT; these are primarily upper lobe, and seem more consistent wtih aspiration (also re community acquired pneumonia, he is home bound, and given the swallow eval findings, more c/w aspiration. IS improving somewhat c/w 08/11 plain film ? if the R effusion is parapneumonic: no significatn leukocytosis will continue azithro/ceftriaxone, ; will d/c w/ augmentin/azithro for better anaerobe coverage on d/c than the ceftin would give. Recheck WBC in am, will have RT eval for home needs 6/12PT with CAP and suspect aspiration pneumonia as well. Swallow evaluation today demonstrated a concern for aspiration risk. PT will Continue on ABX., Changes made to diet to correspond with swallow eval results and Speech recommendations for moist pureed diet, spoon thick liquids, meds crushed in yogur Qualifiers: 2) Dysphagia w/ Aspiration into airway Assessment/Plan: 08/13; continue w/ [employer] recommendations for 6/12PT with speech swallow evaluation today. Strong indication of aspiration risk, weak cough and holding food in his mouth. PT missing most of lower dentition. Recommendations for moist pureed diet. Spoon thickened liquid and meds crushed in yogurt or applesauce See Report for details. t and applesauce. Anticipate discharge home in AM 08/13/16 2) ; Dysphagia; (2) Dementia temporal dementia; F02.80 - Dementia in other diseases classified elsewhere without behavioral disturbance Assessment/Plan: 08/13; slowly progressive frontal lobe dementia / already has caregivers, but with progressive decline in functioning; STill is full cor per family, but Saima has initiated discussion w/ them (see below); for d/c will add home health rec for RN, PT., OT continue aricept 08/12Frontal lobe dementia secondary to trauma. Has care givers at home. Suspect aspiration is related to advance in his disease. No changes today COR status Saima Aarti cristobalal for Palliative Care 08/12 "Patient met briefly, spoke with caregiver Lisandra to get baseline functioning and care needs at home. Reviewed chart and spoke with hospitalist. Able to talk with Charlee, patient's daughter and DPOA [phone]. She is exploring goals of care given her father's decline, has been difficult journey, she has been a good advocate, but patient has been less mobile, less interactive, and now hospitalized with aspiration pneumonia. Discussed the continuum of care decisions including tube feedings, code status, and transition back home. Has defaulted to FULL CODE given the variety of caregivers and concern about responding to an emergent situation i.e. choking, does not want her father intubated, discussed how this is often included in CPR process, cannot be , agreed to revisit this tomorrow. Also reviewed the continuum including hospice criteria and services in the future. At this time the request would be to have HH RN/PT/ST support for transition back home (has had services in past), palliative care can follow after services discharge, and continue to weigh benefits and burdens of different interventions as arise. Courtesy visit only today, will see tomorrow for formal admit to establish care." (3) Chronic pain Assessment/Plan: No indications for discomfort today (4) Miscellaneious: no indication for IV PPI; will d/c will d/c temazepam has not taken/ not on at home Qualifiers: Aspiration pneumonia type: unspecified Laterality: right Lung location: unspecified part of lung Qualified Code(s): J69.0 - Pneumonitis due to inhalation of food and vomit
[2016-08-13] MEDS: DONEPEZIL 5 MG TABLET PO SCH (20:13)
[2016-08-14] MEDS: SODIUM CHLORIDE 0.9% 1,000 ML IV SCH (00:31)
[2016-08-14] MEDS: SODIUM CHLORIDE FLUSH 0.9% 10 ML SYRINGE IVP SCH (05:39)
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
[2016-08-14 06:19] LABS: HCT - HEMATOCRIT 35.3 % (42.0-52.0); MEAN CORPUSCULAR HEMOGLOBIN 30.7 pg (27.0-31.0); MEAN CORPUSCULAR VOLUME 90.2 fL (80.0-94.0); MEAN PLATELET VOLUME 7.3 fL (7.4-11.4); RED BLOOD COUNT 3.92 10^6/uL (4.70-6.10); RED CELL DISTRIBUTION WIDTH 12.6 % (12.0-15.0)
--- NOTE | 2016-08-14 07:45 | Discharge Plan ---
Discharge Plan Disposition: Home Health Service Condition: Stable Prescriptions: Amox/Clav 875/125 [Augmentin] 1 each PO Q12H #8 tablet Diet: Regular (High aspiration; per Speech/Language Pathology (ORGANIC SEARCH LEAD)specialist swallow eval, current recommendations for food texture are: honey thickened liquid 2) pureed diet He MAY be able to advance as he recovers from the pneumonia. Speech/swallow specialist will plan to follow him at home) Activity Restrictions: Activity as Tolerated (home health PT ordered) Assistance Devices: Other (with his increasing stiffness, he may require other assistive devices; home health services will evaluate) Weight Bearing: Full Weight Additional Instructions or Follow Up instructions: Nancy (Deven) was admitted with pneumonia which is suspicious for (and most consistent with) aspiration pneumonia given the Chest Xray/Chest CT findings and the care takers witnessing what looked like aspiration, and, especially since the speech language pathologist noted signs of aspiration (some cognitive issues and anatomic issues with swallowing.) and some when fever, wet cough after eating. She evaluated him several days and at this time food texture recommendations are as written above under diet. He was started on antibiotics and slowly improved, He still had a low grade temperature on 08/12, but has been without a fever since 08/13. His infiltrates are slowly improving. He has no oxygen requirement He will continue 4 more days of antibiotic (Augmentin) A home health consult is being ordered for PT, RN and Speech/Language (swallow) therapist Saima Broussard initiated conversation with you regarding Palliative Care as he is having a slow decline. He remains at risk for aspiration. YOu indicated you would not want intubation (mechanical ventilation/breathing) but would want CPR. You and Saima discussed that once you can have a discussion with all your siblings present you will discuss with her as a group . (Saima will contact Christel Vasquez for a referral for a formal palliative care consultation. Follow-Up Care: Home Health - RN, Home Health - PT (Home Health PT), Home Health - ST No Smoking: If you smoke, Please STOP! Call for help. Follow-up with: Christel Vasquez ARNP [Primary Care Provider] - 1 Week (follow up after aspiration pneumonia (could defer to later in discussion w/ daughter if doing well recommend f/u CXR 4-6 weeks to ensure acute upper lobe patchy infiltrates are resolving and pleural effusion (R) resolving Please ensure referall for home health RN, PT and ORGANIC SEARCH LEAD go thru (I did order on [facility]) Thank you )
[2016-08-14] MEDS: cefTRIAXone 1 GM in SODIUM CHLORIDE 0.9% MINIBAG 100 ML IV SCH (08:21)
[2016-08-14] MEDS: POLYETHYLENE GLYCOL 3350 17 GM PACKET PO SCH (08:23)
[2016-08-14] MEDS: ACETAMINOPHEN 500 MG TABLET PO SCH (08:23)
[2016-08-14] MEDS: AZITHROMYCIN INJ 500 MG in SODIUM CHLORIDE 0.9% 250 ML IV SCH (09:04)
[2016-08-14 09:12] VITALS: BP 118/64
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
== END 2016-08-14 13:52 | disposition home health service (06) | DRG 178 ==
LOC: EDUNIT# → SUPCPDRO 12:11 → ED 12:11 → MS 15:28
PROVIDERS: ADMIT Physician Assistant; ATTEND Nurse Practitioner
DX: J69.0 Pneumonitis due to inhalation of food and vomit (principal); R09.02 Hypoxemia; F03.90 Unspecified dementia, unspecified severity, without behavioral disturbance, psychotic disturbance, mood disturbance, and anxiety; F84.5 Asperger's syndrome; G31.09 Other frontotemporal neurocognitive disorder; F02.80 Dementia in other diseases classified elsewhere, unspecified severity, without behavioral disturbance, psychotic disturbance, mood disturbance, and anxiety; R13.10 Dysphagia, unspecified; M54.9 Dorsalgia, unspecified; G89.29 Other chronic pain; F41.9 Anxiety disorder, unspecified; Z87.820 Personal history of traumatic brain injury; Z87.01 Personal history of pneumonia (recurrent); Z91.81 History of falling
CPT/HCPCS: 36415; 71010; 71250; 80053; 83690; 85025; 87275; 87276; 94640; 94664; 96361; 96365; 96375; 99221; 99284; 99285

== ENCOUNTER 2016-08-14 13:41 | Outpatient (CLI) | payer MEDICARE, OTHER | END 2016-08-14 13:42 | disposition home or self-care (01) | LOC: EMS 13:41 | PROVIDERS: ATTEND Surgery | DX: J18.9 Pneumonia, unspecified organism (principal) | CPT/HCPCS: A0425; A0428 ==

== ENCOUNTER 2016-11-25 13:46 | Outpatient (CLI) | payer MEDICARE, OTHER ==
--- NOTE | 2016-11-25 15:34 | XRAY Report ---
TWO VIEW CHEST: 11/25/2016 CLINICAL INDICATION: Pneumonia followup. COMPARISON: CT of 08/13/2016. FINDINGS: Frontal and lateral views of the chest demonstrate a normal cardiac silhouette. The previo usly seen infiltrates and effusions have resolved. Emphysematous changes are noted. No pneumothorax. IMPRESSION: RESOLUTION OF PREVIOUSLY SEEN INFILTRATES AND EFFUSIONS. APICAL EMPHYSEMA. JOB #: [id number] EXT JOB #:[id number]
== END 2016-11-25 13:47 | disposition home or self-care (01) ==
LOC: DI 13:46
PROVIDERS: ATTEND Internal Medicine
DX: J43.9 Emphysema, unspecified (principal)
CPT/HCPCS: 71020

== ENCOUNTER 2017-08-21 19:04 | Outpatient (CLI) | payer MEDICARE, OTHER | END 2017-08-21 19:05 | disposition critical access hospital (66) | LOC: EMS 19:04 | PROVIDERS: ATTEND Surgery | DX: R50.9 Fever, unspecified (principal) | CPT/HCPCS: A0425; A0429 ==

== ENCOUNTER 2017-08-21 19:45 | Emergency (ER) | payer MEDICARE, OTHER ==
--- NOTE | 2017-08-21 20:12 | ED Physician Documentation ---
History of Present Illness - Stated complaint Stated Complaint: FEVER - Chief complaint Chief Complaint: Fever - History obtained from History obtained from: Caregiver - History of Present Illness Timing: How many days ago (3-4) - Additonal information Additional information: information from caregiver, who has been taking care of this patient for a few years now. Patient has frontal lobe dementia, is nonverbal at baseline. Per caregiver, patient has had mild cough and decreased alertness x 3-4 days, "glassy-eyed", low-grade temperature 99.9, although medics measured 100.7 [employer]. Review of Systems Unable to obtain: Dementia (nonverbal (baseline)) Constitutional: reports: Fever Respiratory: reports: Cough PD PAST MEDICAL HISTORY - Past Medical History Past Medical History: Yes Cardiovascular: None Respiratory: Pneumonia Neuro: None : None HEENT: None Psych: Anxiety, Other Musculoskeletal: Chronic back pain Other Past Medical History: Frontal lobe dementia - Past Surgical History Past Surgical History: No - Present Medications Home Medications: Ambulatory Orders Medication Instructions Recorded Confirmed Donepezil HCl [Aricept] 10 mg PO QPM 06/08/14 08/08/16 Sennosides [Senna] 8.6 mg PO DAILY PRN 01/27/16 08/08/16 Acetaminophen [Tylenol] 650 mg PO Q4HR PRN #0 tablet 08/14/16 Azithromycin [Zithromax] 250 mg PO DAILY #4 tablet 08/21/17 - Allergies Allergies/Adverse Reactions: Allergies Allergy/AdvReac Type Severity Reaction Status Date / Time No Known Drug Allergies Allergy Verified 08/21/17 19:56 - Social History Does the pt smoke?: No Smoking Status: Never smoker Does the pt drink ETOH?: No Does the pt have substance abuse?: No - Immunizations Immunizations are current?: No Immunizations: TDAP >10years/unknown - POLST Patient has POLST: Yes POLST Status: Limited Interventions (Do not intubate) PD ED PE NORMAL - Vitals Vital signs reviewed: Yes - General General: No acute distress, Well developed/nourished, Other (awake, alert. nonverbal. good eye contact, does not follow commands. calm, cooperative with exam) - HEENT HEENT: PERRL, EOMI, Moist mucous membranes - Cardiac Cardiac: RRR, No murmur - Respiratory Respiratory: No respiratory distress, Clear bilaterally - Abdomen Abdomen: Soft, Non tender - Derm Derm: Normal color, Warm and dry - Extremities Extremities: No edema Results - Vitals Vitals: Vital Signs - 24 hr 08/21/17 08/21/17 08/22/17 19:49 22:30 00:05 Temperature 37 C 37.2 C Heart Rate 82 83 88 Respiratory 16 21 20 Rate Blood Pressure 181/70 H 141/84 H 138/75 H O2 Saturation 100 98 99 Oxygen O2 Source [With Activity] Room air O2 Source Room air - Labs Labs: Laboratory Tests 08/21/17 08/21/17 08/21/17 20:15 20:49 20:49 WBC 19.4 H RBC 4.33 L Hgb 13.3 L Hct 40.6 L MCV 93.7 MCH 30.8 MCHC 32.9 RDW 12.7 Plt Count 457 H MPV 7.3 L Neut # (Auto) 16.3 H Lymph # (Auto) 1.9 [place] # (Auto) 1.0 Eos # (Auto) 0.0 Baso # (Auto) 0.1 Absolute Nucleated RBC 0.00 Nucleated RBC % 0.0 Sodium 142 Potassium 4.1 Chloride 104 Carbon Dioxide 30 Anion Gap 8.0 BUN 28 H Creatinine 0.9 Estimated GFR (MDRD) 83 L Glucose 109 H Lactic Acid Calcium 9.4 Urine Color YELLOW Urine Clarity CLEAR Urine pH 6.0 Ur Specific [place] 1.020 Urine Protein NEGATIVE Urine Glucose (UA) NEGATIVE Urine Ketones NEGATIVE Urine Occult Blood NEGATIVE Urine Nitrite NEGATIVE Urine Bilirubin NEGATIVE Urine Urobilinogen 0.2 (NORMAL) Ur Leukocyte Esterase NEGATIVE Ur Microscopic Review NOT INDICATED Urine Culture Comments NOT INDICATED 08/21/17 20:49 WBC RBC Hgb Hct MCV MCH MCHC RDW Plt Count MPV Neut # (Auto) Lymph # (Auto) [place] # (Auto) Eos # (Auto) Baso # (Auto) Absolute Nucleated RBC Nucleated RBC % Sodium Potassium Chloride Carbon Dioxide Anion Gap BUN Creatinine Estimated GFR (MDRD) Glucose Lactic Acid 1.0 Calcium Urine Color Urine Clarity Urine pH Ur Specific [place] Urine Protein Urine Glucose (UA) Urine Ketones Urine Occult Blood Urine Nitrite Urine Bilirubin Urine Urobilinogen Ur Leukocyte Esterase Ur Microscopic Review Urine Culture Comments - Rads (name of study) chest xray Radiology: Prelim report reviewed, See rad report PD MEDICAL DECISION MAKING - ED course Complexity details: reviewed old records, reviewed results, re-evaluated patient , considered differential, d/w patient - Sepsis Event Vital Signs: Vital Signs - 24 hr 08/21/17 08/21/17 08/22/17 19:49 22:30 00:05 Temperature 37 C 37.2 C Heart Rate 82 83 88 Respiratory 16 21 20 Rate Blood Pressure 181/70 H 141/84 H 138/75 H O2 Saturation 100 98 99 Oxygen O2 Source [With Activity] Room air O2 Source Room air Departure - Departure Disposition: 01 Home, Self Care Clinical Impression: Pneumonia Qualifiers: Pneumonia type: due to unspecified organism Laterality: left Lung location: lower lobe of lung Qualified Code(s): J18.1 - Lobar pneumonia, unspecified organism Condition: Good Instructions: ED Pneumonia Adult Follow-Up: SHAYLEE DUGGAN MD [Primary Care Provider] - (3-4 days if symptoms persist) Prescriptions: Azithromycin [Zithromax] 250 mg PO DAILY #4 tablet Discharge Date/Time: 08/22/17 00:05
[2017-08-21 20:30] LABS: BILIRUBIN,URINE NEGATIVE (NEGATIVE); GLUCOSE, URINE (UA) NEGATIVE (NEGATIVE); KETONES,URINE (UA) NEGATIVE (NEGATIVE); LEUKOCYTE ESTERASE, URINE NEGATIVE (NEGATIVE); NITRITE,URINE NEGATIVE (NEGATIVE); OCCULT BLOOD,URINE NEGATIVE (NEGATIVE); PROTEIN,URINE NEGATIVE (NEGATIVE); UROBILINOGEN,URINE 0.2 (NORMAL) E.U./dL (NORMAL)
[2017-08-21 20:33] LABS: CLARITY,URINE CLEAR (CLEAR)
[2017-08-21 20:57] LABS: BASOPHILS # (AUTO) 0.1 10^3/uL (0.0-0.1); BASOPHILS % (AUTO) 0.6 %; EOSINOPHILS % (AUTO) 0.2 %; HGB - HEMOGLOBIN 13.3 g/dL (14.0-18.0); LYMPHOCYTES # (AUTO) 1.9 10^3/uL (1.5-3.5); LYMPHOCYTES % (AUTO) 9.7 %; MEAN CORPUSCULAR HEMOGLOBIN 30.8 pg (27.0-31.0); MEAN CORPUSCULAR HGB CONC 32.9 g/dL (32.0-36.0); MEAN CORPUSCULAR VOLUME 93.7 fL (80.0-94.0); MEAN PLATELET VOLUME 7.3 fL (7.4-11.4); MONOCYTES % (AUTO) 5.1 %; NEUTROPHILS # (AUTO) 16.3 10^3/uL (1.5-6.6); NEUTROPHILS % (AUTO) 84.4 %; PLT - PLATELET COUNT 457 10^3/uL (130-450); RED BLOOD COUNT 4.33 10^6/uL (4.70-6.10); RED CELL DISTRIBUTION WIDTH 12.7 % (12.0-15.0); WHITE BLOOD COUNT 19.4 x10^3/uL (4.8-10.8)
[2017-08-21 21:13] LABS: CALCIUM 9.4 mg/dL (8.5-10.3); CREATININE 0.9 mg/dL (0.6-1.2)
--- NOTE | 2017-08-21 21:47 | XRAY Report ---
Procedure Date: 08/21/2017 Accession Number: [id number] / [id number] Procedure: XR - Chest 2 View X-Ray CPT Code: 32914 FULL RESULT: EXAM: CHEST RADIOGRAPHY EXAM DATE: 08/21/2017 09:15 PM. CLINICAL HISTORY: Fever, cough. COMPARISON: 11/25/2016. TECHNIQUE: 2 views. FINDINGS: Lungs/Pleura: Prominent infiltration in the left posterior lung base. No consolidation, effusion, or pneumothorax. Mediastinum: Heart and mediastinal contours are unremarkable. Other: Old rib fractures and other chronic findings. IMPRESSION: Left basilar infiltrate. RADIA
[2017-08-21] MEDS ORDERED: AZITHROMYCIN 250 MG TABLET PO STA (22:24)
[2017-08-21] MEDS ORDERED: cefTRIAXone 1 GM in SODIUM CHLORIDE 0.9% MINIBAG 100 ML IV STA (22:24)
[2017-08-22 01:45] VITALS: BP 138/75
== END 2017-08-22 00:05 | disposition home or self-care (01) ==
LOC: EDUNIT# → ED 19:45
DX: J18.1 Lobar pneumonia, unspecified organism (principal); G31.09 Other frontotemporal neurocognitive disorder; F02.80 Dementia in other diseases classified elsewhere, unspecified severity, without behavioral disturbance, psychotic disturbance, mood disturbance, and anxiety
CPT/HCPCS: 36415; 71046; 80048; 81003; 83605; 85025; 96365; 99284; A9270; 81001; 87086

== ENCOUNTER 2017-08-22 00:17 | Outpatient (CLI) | payer MEDICARE, OTHER | END 2017-08-22 00:18 | disposition home or self-care (01) | LOC: EMS 00:17 | PROVIDERS: ATTEND Surgery | DX: J18.9 Pneumonia, unspecified organism (principal); G31.09 Other frontotemporal neurocognitive disorder; F02.80 Dementia in other diseases classified elsewhere, unspecified severity, without behavioral disturbance, psychotic disturbance, mood disturbance, and anxiety | CPT/HCPCS: A0425; A0428 ==

== ENCOUNTER 2017-08-28 12:43 | Outpatient (CLI) | payer MEDICARE, OTHER | END 2017-08-28 12:44 | disposition home or self-care (01) | LOC: NS 12:43 | PROVIDERS: ATTEND Nurse Practitioner Family | DX: Z71.3 Dietary counseling and surveillance (principal); R63.6 Underweight; G31.09 Other frontotemporal neurocognitive disorder; Z99.3 Dependence on wheelchair; Z68.1 Body mass index [BMI] 19.9 or less, adult | CPT/HCPCS: 97802 ==

== ENCOUNTER 2017-09-05 22:38 | Outpatient (CLI) | payer MEDICARE, OTHER | END 2017-09-05 22:39 | disposition critical access hospital (66) | LOC: EMS 22:38 | PROVIDERS: ATTEND Surgery | DX: R50.9 Fever, unspecified (principal) | CPT/HCPCS: A0425; A0429 ==

== ENCOUNTER 2017-09-05 23:02 | Inpatient (IN) | payer MEDICARE, OTHER ==
[2017-09-06 00:02] LABS: BASOPHILS # (AUTO) 0.1 10^3/uL (0.0-0.1); BASOPHILS % (AUTO) 0.7 %; HGB - HEMOGLOBIN 13.8 g/dL (14.0-18.0); LYMPHOCYTES # (AUTO) 0.4 10^3/uL (1.5-3.5); LYMPHOCYTES % (AUTO) 2.6 %; MEAN CORPUSCULAR HGB CONC 33.8 g/dL (32.0-36.0); MEAN CORPUSCULAR VOLUME 91.7 fL (80.0-94.0); MEAN PLATELET VOLUME 8.1 fL (7.4-11.4); MONOCYTES # (AUTO) 1.2 10^3/uL (0.0-1.0); MONOCYTES % (AUTO) 7.1 %; NEUTROPHILS # (AUTO) 15.3 10^3/uL (1.5-6.6); NEUTROPHILS % (AUTO) 89.6 %; PLT - PLATELET COUNT 277 10^3/uL (130-450); RED BLOOD COUNT 4.46 10^6/uL (4.70-6.10); RED CELL DISTRIBUTION WIDTH 12.9 % (12.0-15.0); WHITE BLOOD COUNT 17.1 x10^3/uL (4.8-10.8)
[2017-09-06 00:12] LABS: ALBUMIN 3.8 g/dL (3.2-5.5); ALBUMIN/GLOBULIN RATIO 1.1 (1.0-2.2); BILIRUBIN,TOTAL 0.5 mg/dL (0.2-1.0); CREATININE 0.9 mg/dL (0.6-1.2); TOTAL PROTEIN 7.4 g/dL (6.7-8.2)
--- NOTE | 2017-09-06 00:47 | XRAY Report ---
Procedure Date: 09/06/2017 Accession Number: [id number] / [id number] Procedure: XR - Chest 2 View X-Ray CPT Code: 72836 FULL RESULT: EXAM: CHEST RADIOGRAPHY EXAM DATE: 09/06/2017 12:13 AM. CLINICAL HISTORY: Rhonchi. COMPARISON: CHEST 2 VIEW 08/21/2017. TECHNIQUE: 2 views. FINDINGS: Lungs/Pleura: Patchy opacification of the left lower lobe. No effusion or pneumothorax. Mediastinum: Heart and mediastinal contours are unremarkable. Other: None. IMPRESSION: Patchy opacification in the left lower lobe, concerning for pneumonia. RADIA
--- NOTE | 2017-09-06 01:32 | ED Physician Documentation ---
History of Present Illness - Stated complaint Stated Complaint: COUGH/TEMP - Chief complaint Chief Complaint: Fever - History obtained from History obtained from: EMS, Caregiver - History of Present Illness Timing: Today - Additonal information Additional information: 71-year-old nonverbal male with advanced frontal dementia has developed a fever today and has had a cough. He was treated in the emergency department last month for pneumonia with monotherapy with azithromycin and seemed to get some better but is now sick again he does have a cough and elevated temperature. He is not able to provide any more details. He does have a audit associate who knows him well. She has called the ambulance with the elevated temp today. He does have a pulsed form that indicates comfort measures with antibiotics for appropriate measures and trial of IV fluid. We do not have that polst form here with us. Review of Systems Unable to obtain: Dementia Constitutional: reports: Fever Respiratory: reports: Cough Neurologic: reports: Generalized weakness, Altered mental status PD PAST MEDICAL HISTORY - Past Medical History Past Medical History: Yes Cardiovascular: None Respiratory: Pneumonia Neuro: Dementia, Head injury : Incontinence HEENT: None Psych: Anxiety, Other Musculoskeletal: Chronic back pain Derm: None - Past Surgical History Past Surgical History: No - Present Medications Home Medications: Ambulatory Orders Medication Instructions Recorded Confirmed Donepezil HCl [Aricept] 10 mg PO QPM 06/08/14 08/08/16 Sennosides [Senna] 8.6 mg PO DAILY PRN 01/27/16 08/08/16 Acetaminophen [Tylenol] 650 mg PO Q4HR PRN #0 tablet 08/14/16 Azithromycin [Zithromax] 250 mg PO DAILY #4 tablet 08/21/17 - Allergies Allergies/Adverse Reactions: Allergies Allergy/AdvReac Type Severity Reaction Status Date / Time No Known Drug Allergies Allergy Verified 09/05/17 23:19 - Social History Does the pt smoke?: No Smoking Status: Never smoker Does the pt drink ETOH?: No Does the pt have substance abuse?: No - Immunizations Immunizations are current?: No Immunizations: TDAP >10years/unknown - POLST Patient has POLST: Yes POLST Status: Limited Interventions (Do not intubate) PD ED PE NORMAL - Vitals Vital signs reviewed: Yes (tachy and hypotensive with wide pulse pressure. ) - General General: No acute distress, Well developed/nourished, Other (The patient is non- verbal and awakens to stimulus. ) - HEENT HEENT: Atraumatic, PERRL, EOMI, Ears normal - Neck Neck: Supple, no meningeal sign - Cardiac Cardiac: No murmur, Other (tachy ) - Respiratory Respiratory: No respiratory distress, Other (diminished breath sounds bilaterally ) - Abdomen Abdomen: Soft, Non tender - Back Back: No CVA TTP, No spinal TTP - Derm Derm: Normal color, Warm and dry, No rash - Extremities Extremities: No deformity, No edema - Neuro Neuro: Alert and oriented X 3, No motor deficit, No sensory deficit, Normal speech Eye Opening: Spontaneous Motor: Localizes to Pain Verbal: Incomprehensible GCS Score: 11 - Psych Psych: Normal mood Results - Vitals Vitals: Vital Signs - 24 hr 09/05/17 09/06/17 23:16 01:06 Temperature 37.1 C Heart Rate 118 H 102 H Respiratory 18 16 Rate Blood Pressure 100/54 L 104/65 O2 Saturation 100 94 Oxygen O2 Source [] Room air O2 Source Room air - Labs Labs: Laboratory Tests 09/05/17 09/05/17 09/05/17 23:52 23:52 23:52 WBC 17.1 H RBC 4.46 L Hgb 13.8 L Hct 40.9 L MCV 91.7 MCH 31.0 MCHC 33.8 RDW 12.9 Plt Count 277 MPV 8.1 Neut # (Auto) 15.3 H Lymph # (Auto) 0.4 L [place] # (Auto) 1.2 H Eos # (Auto) 0.0 Baso # (Auto) 0.1 Absolute Nucleated RBC 0.00 Nucleated RBC % 0.0 Sodium 134 L Potassium 3.7 Chloride 100 L Carbon Dioxide 23 Anion Gap 11.0 BUN 21 H Creatinine 0.9 Estimated GFR (MDRD) 83 L Glucose 126 H Calcium 9.0 Total Bilirubin 0.5 AST 37 ALT 28 Alkaline Phosphatase 50 Troponin I < 0.04 Total Protein 7.4 Albumin 3.8 Globulin 3.6 Albumin/Globulin Ratio 1.1 Lipase 73 H - Rads (name of study) 2 veiw chest Radiology: Prelim report reviewed (Impression: Patchy opacification in the left lower lobe, concerning for pneumonia.), EMP read indepedently, See rad report Procedures - IVC sono (time) 0130 Bedside IVC sono: IVC measures (cm) (1.1), IVC collapsed c insp (cm) (complete) , Dehydration (est 1 liter deficit) PD MEDICAL DECISION MAKING - ED course Complexity details: reviewed old records, reviewed results, re-evaluated patient , considered differential, d/w family ED course: 71-year-old nonverbal male with advanced frontal lobe dementia has developed pneumonia again and this appears to be a failure of the outpatient management from the previous episode. He had at that point monotherapy with azithromycin. He seem to have some improvement and is now worse. He had high fever and this is now resolved. Review of the patient's chest x-ray from today appears to have a progression of infiltrate from his most recent x-ray on 21 August. - Sepsis Event Vital Signs: Vital Signs - 24 hr 09/05/17 09/06/17 23:16 01:06 Temperature 37.1 C Heart Rate 118 H 102 H Respiratory 18 16 Rate Blood Pressure 100/54 L 104/65 O2 Saturation 100 94 Oxygen O2 Source [] Room air O2 Source Room air Departure - Departure Disposition: [facility] DC/Xfer Clinical Impression: Pneumonia Qualifiers: Pneumonia type: due to unspecified organism Laterality: left Lung location: lower lobe of lung Qualified Code(s): J18.1 - Lobar pneumonia, unspecified organism Condition: Fair
[2017-09-06] MEDS ORDERED: cefTRIAXone 1 GM in SODIUM CHLORIDE 0.9% MINIBAG 100 ML IV STA (01:38)
[2017-09-06] MEDS ORDERED: AZITHROMYCIN INJ 500 MG in SODIUM CHLORIDE 0.9% 250 ML IV STA (01:38)
[2017-09-06] MEDS ORDERED: SODIUM CHLORIDE 0.9% 1,000 ML IV ONE (01:38)
[2017-09-06] MEDS ORDERED: HYDROcod/ACETAM 5/325 MG TABLET PO PRN (01:52)
[2017-09-06] MEDS ORDERED: ONDANSETRON ODT 4 MG TABLET TL PRN (01:52)
[2017-09-06] MEDS ORDERED: ONDANSETRON 4 MG/2 ML VIAL IVP PRN (01:52)
[2017-09-06] MEDS ORDERED: ALBUTEROL NEB 2.5 MG/3 ML INH PRN (01:55)
[2017-09-06] MEDS: SODIUM CHLORIDE 0.9% 1,000 ML IV SCH ×2 (03:35→16:32)
[2017-09-06] MEDS: levoFLOXacin 750 MG/150 ML 750 MG/150 ML BAG IV SCH (03:36)
[2017-09-06 05:25] LABS: BASOPHILS % (AUTO) 0.3 %; HGB - HEMOGLOBIN 12.5 g/dL (14.0-18.0); LYMPHOCYTES % (AUTO) 5.7 %; MEAN CORPUSCULAR HEMOGLOBIN 30.9 pg (27.0-31.0); MEAN CORPUSCULAR HGB CONC 33.1 g/dL (32.0-36.0); MEAN CORPUSCULAR VOLUME 93.4 fL (80.0-94.0); MEAN PLATELET VOLUME 7.7 fL (7.4-11.4); MONOCYTES % (AUTO) 6.9 %; NEUTROPHILS % (AUTO) 87.1 %; PLT - PLATELET COUNT 249 10^3/uL (130-450); RED BLOOD COUNT 4.04 10^6/uL (4.70-6.10); RED CELL DISTRIBUTION WIDTH 13.2 % (12.0-15.0); WHITE BLOOD COUNT 21.3 x10^3/uL (4.8-10.8)
[2017-09-06 05:28] LABS: ABNORMAL LYMPHS % (MANUAL) 0 %
[2017-09-06 05:33] LABS: CALCIUM 8.5 mg/dL (8.5-10.3); CREATININE 0.9 mg/dL (0.6-1.2)
[2017-09-06 05:48] LABS: BAND NEUTROPHILS % (MANUAL) 28 %; DIFFERENTIAL COMMENT MANUAL DIFFERENTIAL; LYMPHOCYTES # (MANUAL) 2.3 10^3/uL (1.5-3.5); LYMPHOCYTES % (MANUAL) 11 %; MONOCYTES # (MANUAL) 1.1 10^3/uL (0.0-1.0); NEUTROPHILS # (MANUAL) 17.9 10^3/uL (1.5-6.6); NEUTROPHILS % (MANUAL) 56 %; PLATELET ESTIMATE, MANUAL NORMAL (130-450,000) (NORMAL); RBC MORPHOLOGY (MULTIPLE) NORMAL APPEARANCE (NORMAL)
[2017-09-06] MEDS: PIPERACILLIN/TAZOBACTAM 4.5 GM in SODIUM CHLORIDE 0.9% MINIBAG 100 ML IV SCH ×3 (06:31→18:32)
[2017-09-06] MEDS: SODIUM CHLORIDE FLUSH 0.9% 10 ML SYRINGE IVP SCH ×2 (07:41→18:32)
[2017-09-06] MEDS: SACCHAROMYCES BOULARDII 250 MG CAPSULE PO SCH ×3 (08:27→18:34)
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
[2017-09-06] MEDS: POLYETHYLENE GLYCOL 3350 17 GM PACKET PO SCH (10:34)
[2017-09-06] MEDS ORDERED: MIN OIL/DIMETHICON/COCONUT OIL 92 GM TUBE TOP PRN (11:08)
[2017-09-06] MEDS: ACETAMINOPHEN 325 MG TABLET PO PRN (15:11)
[2017-09-06] MEDS: traZODone 50 MG TABLET PO SCH (21:58)
[2017-09-07] MEDS: ACETAMINOPHEN 325 MG TABLET PO PRN ×2 (00:14→23:56)
[2017-09-07] MEDS: PIPERACILLIN/TAZOBACTAM 4.5 GM in SODIUM CHLORIDE 0.9% MINIBAG 100 ML IV SCH ×4 (00:15→18:20)
[2017-09-07] MEDS: SODIUM CHLORIDE FLUSH 0.9% 10 ML SYRINGE IVP SCH ×3 (00:16→18:20)
[2017-09-07] MEDS: SODIUM CHLORIDE FLUSH 0.9% 10 ML SYRINGE IVP PRN (06:05)
[2017-09-07 06:22] LABS: BASOPHILS # (AUTO) 0.1 10^3/uL (0.0-0.1); BASOPHILS % (AUTO) 0.4 %; CALCIUM 8.3 mg/dL (8.5-10.3); EOSINOPHILS # (AUTO) 0.5 10^3/uL (0.0-0.7); EOSINOPHILS % (AUTO) 3.2 %; HGB - HEMOGLOBIN 11.4 g/dL (14.0-18.0); LYMPHOCYTES % (AUTO) 14.4 %; MEAN CORPUSCULAR HEMOGLOBIN 30.9 pg (27.0-31.0); MEAN CORPUSCULAR HGB CONC 32.9 g/dL (32.0-36.0); MEAN CORPUSCULAR VOLUME 93.8 fL (80.0-94.0); MEAN PLATELET VOLUME 8.3 fL (7.4-11.4); MONOCYTES # (AUTO) 1.1 10^3/uL (0.0-1.0); MONOCYTES % (AUTO) 7.7 %; NEUTROPHILS # (AUTO) 10.5 10^3/uL (1.5-6.6); NEUTROPHILS % (AUTO) 74.3 %; PLT - PLATELET COUNT 231 10^3/uL (130-450); RED CELL DISTRIBUTION WIDTH 13.7 % (12.0-15.0); WHITE BLOOD COUNT 14.1 x10^3/uL (4.8-10.8)
[2017-09-07] MEDS: POLYETHYLENE GLYCOL 3350 17 GM PACKET PO SCH (08:43)
[2017-09-07] MEDS: SACCHAROMYCES BOULARDII 250 MG CAPSULE PO SCH ×2 (09:09→18:23)
[2017-09-07] MEDS: DONEPEZIL 5 MG TABLET PO SCH ×2 (09:09→09:12)
[2017-09-07] MEDS: levoFLOXacin 750 MG/150 ML 750 MG/150 ML BAG IV SCH (09:11)
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
[2017-09-07] MEDS: traZODone 50 MG TABLET PO SCH (21:49)
[2017-09-08] MEDS: PIPERACILLIN/TAZOBACTAM 4.5 GM in SODIUM CHLORIDE 0.9% MINIBAG 100 ML IV SCH ×4 (00:01→17:50)
[2017-09-08] MEDS: SODIUM CHLORIDE FLUSH 0.9% 10 ML SYRINGE IVP SCH ×3 (00:12→17:50)
[2017-09-08] MEDS: SODIUM CHLORIDE FLUSH 0.9% 10 ML SYRINGE IVP PRN ×2 (05:37→08:26)
[2017-09-08 05:51] LABS: CALCIUM 8.7 mg/dL (8.5-10.3)
[2017-09-08 05:53] LABS: BASOPHILS # (AUTO) 0.1 10^3/uL (0.0-0.1); BASOPHILS % (AUTO) 0.8 %; EOSINOPHILS # (AUTO) 0.5 10^3/uL (0.0-0.7); EOSINOPHILS % (AUTO) 5.9 %; HGB - HEMOGLOBIN 11.9 g/dL (14.0-18.0); LYMPHOCYTES % (AUTO) 24.4 %; MEAN CORPUSCULAR HEMOGLOBIN 31.2 pg (27.0-31.0); MEAN CORPUSCULAR HGB CONC 33.4 g/dL (32.0-36.0); MEAN CORPUSCULAR VOLUME 93.5 fL (80.0-94.0); MEAN PLATELET VOLUME 7.9 fL (7.4-11.4); MONOCYTES # (AUTO) 0.7 10^3/uL (0.0-1.0); MONOCYTES % (AUTO) 8.5 %; NEUTROPHILS # (AUTO) 4.9 10^3/uL (1.5-6.6); NEUTROPHILS % (AUTO) 60.4 %; PLT - PLATELET COUNT 245 10^3/uL (130-450); RED BLOOD COUNT 3.83 10^6/uL (4.70-6.10); RED CELL DISTRIBUTION WIDTH 13.5 % (12.0-15.0)
[2017-09-08] MEDS: SACCHAROMYCES BOULARDII 250 MG CAPSULE PO SCH ×2 (08:16→17:50)
[2017-09-08] MEDS: POLYETHYLENE GLYCOL 3350 17 GM PACKET PO SCH (08:16)
[2017-09-08] MEDS: DONEPEZIL 5 MG TABLET PO SCH (08:17)
[2017-09-08] MEDS: levoFLOXacin 750 MG/150 ML 750 MG/150 ML BAG IV SCH (08:21)
[2017-09-08] MEDS ORDERED: SODIUM CHLORIDE FLUSH 0.9% 10 ML SYRINGE ONE (10:36)
--- NOTE | 2017-09-08 15:17 | PROVIDER PROGRESS NOTE ---
Subjective - Prog Note Date Prog Note Date: 09/08/17 Prog Note Time: 12:45 - Subjective Subjective: The patient has end-stage frontal dementia and functional quadriplegia. He is unable to make his wants or needs known. He appears comfortable and is not showing signs of any pain or agitation at this time. Current Medications - Current Medications Current Medications: Active Medications Acetaminophen (Tylenol) 650 mg PO Q4HR PRN PRN Reason: Pain 1 to 4 Last Admin: 09/07/17 23:56 Dose: 650 mg Hydrocodone Bitart/Acetaminophen ([place] 5/325) 1 tab PO Q4HR PRN PRN Reason: Pain 5 to 7 Donepezil HCl (Aricept) 10 mg PO DAILY [facility] Last Admin: 09/08/17 08:17 Dose: 10 mg Levofloxacin (Levaquin 750 Mg/150 Ml) 750 mg in 150 mls @ 100 mls/hr IV Q24H [facility] Last Infusion: 09/08/17 10:26 Dose: Infused Piperacillin Sod/Tazobactam (Sod 4.5 gm/ Sodium Chloride) 100 mls @ 100 mls/hr IV Q6HR [facility] Last Infusion: 09/08/17 14:11 Dose: Infused Mineral Oil (Cavilon) 1 applic TOP PRN PRN PRN Reason: Skin Care Ondansetron HCl (Zofran Inj) 4 mg IVP Q6HR PRN PRN Reason: Nausea / Vomiting Ondansetron HCl (Zofran Odt) 4 mg TL Q6HR PRN PRN Reason: Nausea / Vomiting Polyethylene Glycol (Miralax) 17 gm PO DAILY [facility] Last Admin: 09/08/17 08:16 Dose: 17 gm Saccharomyces Boulardii (Florastor) 250 mg PO BIDWM [facility] Last Admin: 09/08/17 08:16 Dose: 250 mg Sodium Chloride (Normal Saline Flush 0.9%) 10 ml IVP PRN PRN PRN Reason: NEEDED PER PROVIDER ORDERS Last Admin: 09/08/17 08:26 Dose: 10 ml Sodium Chloride (Normal Saline Flush 0.9%) 10 ml IVP 0100,0900,1700 [facility] Last Admin: 09/08/17 08:24 Dose: 10 ml Trazodone HCl (Desyrel) 50 mg PO QPM [facility] Last Admin: 09/07/17 21:49 Dose: 50 mg Sennosides [Senna] 8.6 mg PO DAILY PRN 01/27/16 traZODone [Desyrel] 50 mg PO QPM 09/06/17 Lactobacillus Acidophilus [Probiotic Acidophilus] 1 each PO DAILY 09/08/17 Multivitamin [Theragran] 1 each PO DAILY 09/08/17 Polyethylene Glycol 3350 [Miralax] 17 gm PO DAILY PRN 09/08/17 Objective - Vital Signs/Intake & Output Reviewed Vital Signs: Yes Vital Signs: Vital Signs x48h Temp Pulse Resp BP Pulse Ox 09/08/17 08:00 36.2 C L 81 18 142/78 H 99 Intake & Output: Intake & Output 09/05/17 09/06/17 09/07/17 09/08/17 23:59 23:59 23:59 23:59 Intake Total 4530 2730 1060 Balance 4530 2730 1060 - Objective General Appearance: positive: No acute distress, Alert Eyes Bilateral: positive: Normal inspection, PERRL, EOMI, No lid inflammation, Conjunctivae nml, No scleral icterus ENT: positive: ENT inspection nml, Pharynx nml, No signs of dehydration Neck: positive: Nml inspection, Thyroid nml, No JVD, Trachea midline. negative : Thyromegaly Respiratory: positive: Chest non-tender, No respiratory distress, Breath sounds nml. negative: Wheezes, Rales, Rhonchi Cardiovascular: positive: Regular rate & rhythm, No murmur, No gallop Abdomen: positive: Non-tender, No organomegaly, Nml bowel sounds, No distention. negative: Guarding, Rebound Back: positive: Nml inspection. negative: CVA tenderness (R), CVA tenderness (L ) Skin: positive: Color nml, No rash, Warm, Dry. negative: Cyanosis Extremities: positive: Non-tender, Full ROM, Nml appearance, No pedal edema Neurologic/Psychiatric: positive: Disoriented to person, Disoriented to place, Disoriented to time, Other (Patient is alert and sometimes tracks with his eyes but often does not. He is nonverbal. He cannot make his wants or needs known. He has a FAST scale score of 7C) - Lab Results Fish Bones: 09/08/17 05:27 09/08/17 05:27 Other Labs: Lab Results x24hrs 09/08/17 09/08/17 Range/Units 05:27 05:27 WBC 8.0 (4.8-10.8) x10^3/uL RBC 3.83 L (4.70-6.10) 10^6/uL Hgb 11.9 L (14.0-18.0) g/dL Hct 35.8 L (42.0-52.0) % MCV 93.5 (80.0-94.0) fL MCH 31.2 H (27.0-31.0) pg MCHC 33.4 (32.0-36.0) g/dL RDW 13.5 (12.0-15.0) % Plt Count 245 (130-450) 10^3/uL MPV 7.9 (7.4-11.4) fL Neut # (Auto) 4.9 (1.5-6.6) 10^3/uL Lymph # (Auto) 2.0 (1.5-3.5) 10^3/uL [place] # (Auto) 0.7 (0.0-1.0) 10^3/uL Eos # (Auto) 0.5 (0.0-0.7) 10^3/uL Baso # (Auto) 0.1 (0.0-0.1) 10^3/uL Absolute Nucleated RBC 0.00 x10^3/uL Nucleated RBC % 0.0 /100WBC Sodium 139 (135-145) mmol/L Potassium 3.5 (3.5-5.0) mmol/L Chloride 104 (101-111) mmol/L Carbon Dioxide 28 (21-32) mmol/L Anion Gap 7.0 (6-13) BUN 9 (6-20) mg/dL Creatinine 1.0 (0.6-1.2) mg/dL Estimated GFR (MDRD) 73 L (>89) Glucose 89 (70-100) mg/dL Calcium 8.7 (8.5-10.3) mg/dL Assessment/Plan - Problem List (1) Aspiration pneumonia Qualifiers: Aspiration pneumonia type: unspecified Laterality: right Lung location: unspecified part of lung Qualified Code(s): J69.0 - Pneumonitis due to inhalation of food and vomit (2) Dementia Qualifiers: Dementia type: other frontotemporal dementia Dementia behavioral disturbance: without behavioral disturbance Qualified Code(s): G31.09 - Other frontotemporal dementia; F02.80 - Dementia in other diseases classified elsewhere without behavioral disturbance
[2017-09-08] MEDS: traZODone 50 MG TABLET PO SCH (20:26)
[2017-09-09] MEDS: PIPERACILLIN/TAZOBACTAM 4.5 GM in SODIUM CHLORIDE 0.9% MINIBAG 100 ML IV SCH ×3 (00:03→11:03)
[2017-09-09] MEDS: SODIUM CHLORIDE FLUSH 0.9% 10 ML SYRINGE IVP SCH ×3 (00:04→09:32)
[2017-09-09] MEDS: SODIUM CHLORIDE FLUSH 0.9% 10 ML SYRINGE IVP PRN (05:39)
[2017-09-09] MEDS: SACCHAROMYCES BOULARDII 250 MG CAPSULE PO SCH (08:00)
[2017-09-09 08:12] VITALS: BP 105/68
[2017-09-09] MEDS: DONEPEZIL 5 MG TABLET PO SCH (09:09)
[2017-09-09] MEDS: POLYETHYLENE GLYCOL 3350 17 GM PACKET PO SCH (09:10)
--- NOTE | 2017-09-09 09:26 | Discharge Plan ---
Discharge Plan Disposition: 50 Hospice/Home DC/Xfer Condition: Fair Prescriptions: Amox/Clav 875/125 [Augmentin] 1 tab PO Q12H #20 tablet Diet: Regular Activity Restrictions: Activity as Tolerated Assistance Devices: Wheelchair Additional Instructions or Follow Up instructions: You were admitted to the hospital for a left lower lobe pneumonia and treated here with IV antibiotics. You have improved significantly and not requiring any oxygen. We have now switched you to oral antibiotics which he will take for an additional 10 days. Given the progression of your dementia you are also now a candidate for hospice. Given that you have been having recurrent pneumonias and we expect with aspiration that you will continue to have pneumonia we referred you for hospice. You have been accepted by hospice and they will admit you to their care tomorrow at your home. For now you are being discharged home in the care of your 24 hour caregivers. Follow-Up Care: Hospice No Smoking: If you smoke, Please STOP! Call for help. Follow-up with: SHAYLEE DUGGAN MD [Primary Care Provider] -
[2017-09-09] MEDS: levoFLOXacin 750 MG/150 ML 750 MG/150 ML BAG IV SCH (09:30)
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
== END 2017-09-09 12:26 | disposition home or self-care (01) | DRG 177 ==
LOC: EDUNIT# → ED 23:02 → MS2 09-06 01:52
PROVIDERS: ADMIT Specialist; ATTEND Internal Medicine
DX: J18.1 Lobar pneumonia, unspecified organism (principal); E86.0 Dehydration; R40.2422 Glasgow coma scale score 9-12, at arrival to emergency department; J69.0 Pneumonitis due to inhalation of food and vomit; R53.2 Functional quadriplegia; F84.5 Asperger's syndrome; G31.09 Other frontotemporal neurocognitive disorder; F02.80 Dementia in other diseases classified elsewhere, unspecified severity, without behavioral disturbance, psychotic disturbance, mood disturbance, and anxiety; S09.90XS Unspecified injury of head, sequela; Z66 Do not resuscitate; Z51.5 Encounter for palliative care; Z74.01 Bed confinement status
CPT/HCPCS: 36415; 71046; 80048; 80053; 83605; 83690; 84484; 85025; 87040; 96365; 99283; 99284; 99285

== ENCOUNTER 2017-09-09 12:22 | Outpatient (CLI) | payer MEDICARE, OTHER | END 2017-09-09 12:23 | disposition home or self-care (01) | LOC: EMS 12:22 | PROVIDERS: ATTEND Surgery | DX: J18.9 Pneumonia, unspecified organism (principal); G82.50 Quadriplegia, unspecified | CPT/HCPCS: A0425; A0428 ==

== ENCOUNTER 2017-12-25 11:00 | Outpatient (CLI) | payer MEDICARE, OTHER ==
--- NOTE | 2017-12-25 17:27 | CONSULTATION NOTE ---
Palliative Care Follow Up - Referral Referring Provider: Christel HINKLE Time of Visit: Referral setting: Home (Patient is mostly bed bound/wheelchair bound it is a taxing considerable effort for him to leave the home secondary to his frontal lobe dementia) Referral Reason: Frontal Lobe Dementia - Information Sources Records reviewed: Previous records reviewed History/Review of Systems obtained from: Caregiver Exam limitations: Clinical condition (patient nonverbal) - History of Present Illness Update Brief HPI Update: This is a 72-year-old gentleman who presents with frontal lobe dementia, recently discharged from hospice as "non-terminal". Patient's diagnosis was in 2002, had continued steady both cognitive and functional decline, with an exacerbation 2 years ago when he fractured his hip. This last year he was admitted to [facility] for a second time in August with aspiration pneumonia, with increased difficulty with dysphagia, and given the context of goals of care was discharged with hospice support. Patient continued to improve, he has toleratd a mechanical soft diet and thickened liquids, though not back to previous baseline, has had no further episodes of infection, continues to eat without symptoms of ongoing weight loss, had multiple skin issues during hospice episode but these have healed and are resolved. Patient at baseline with a high functioning Asperger's, In the context of this had many ticks and OCD behaviors, these were demonstrated as he declined as rubbing and scratching. Through the hospice admit, medications were eliminated, and these have cut down significantly as well as an improvement in his agitation levels. Patient on discharge from hospice, is transitioning to palliative care. Patient presents today as alert, responsive to environment, was able to make some eye contact, but without any facial expression. Does not follow cues, some resistance with turning and examination, but with calm voice and gentle reapproach, patient did relax. Patient observed with swallowing, thickened Ensure, does not present with any symptoms with sitting right up of difficulty with swallowing today. In review of caregiving logs, patient has been tolerating mechanical soft diet, without any difficulty. One of the things that still seems to satisfy patient, is continuing to eat, we discussed goals with daughter, this appears to be a quality of life issue, would recommend continuing comfort feedings. Patient is cared for by 24-hour caregivers, there has been illness with absenteeism related to this with caregivers, they have a usual routine. Patient can get up in the Chris lift into the tilt in space wheelchair. Patient does present with contractures, no skin breakdown, breath sounds are clear, and appears well cared for. Social History - Living Situation Living arrangement: At home Living Situation: With caregiver(s) Support System: Patient has 24-hour caregivers, has regular caregivers that are private, as well as from [employer]. Daughter and guardian Charlee, Oversees schedule and scheduling. They have been pleased with caregiving support. Daughter comes on a regular basis and checks in on caregiving plan. Patient's four years ago from complications of a stroke, he has 2 daughters and a son. Medications/Allergies - Medications Home Medications: Ambulatory Orders Medication Instructions Recorded Confirmed Sennosides [Senna] 8.6 mg PO BID 01/27/16 12/25/17 Lactobacillus Acidophilus 1 each PO DAILY 09/08/17 12/25/17 [Probiotic Acidophilus] Multivitamin [Theragran] 1 each PO DAILY 09/08/17 12/25/17 Polyethylene Glycol 3350 [Miralax] 17 gm PO DAILY PRN 09/08/17 12/25/17 Acetaminophen 1,000 mg PO BID 12/25/17 12/25/17 Loratadine [Allergy Relief] 10 mg PO DAILY 12/25/17 12/25/17 Tumeric 500 mg PO DAILY 12/25/17 - Allergies Allergies/Adverse Reactions: Allergies Allergy/AdvReac Type Severity Reaction Status Date / Time No Known Drug Allergies Allergy Verified 09/05/17 23:19 Review of Systems - Constitutional Constitutional: reports: Weight stable. denies: Fever - Ears, Nose & Throat Ears, Nose & Throat: reports: Dental decay - Respiratory Respiratory: reports: Cough (occasional with eating/drinking) - Gastrointestinal Gastrointestinal: reports: Good appetite, Other (on modified diet of mechanical soft; thickened liquids). denies: Constipation - Genitourinary Genitourinary: reports: Incontinence - Musculoskeletal Musculoskeletal: reports: Stiffness, Limited range of motion, Muscle weakness, Transfer issues (is chris lift into tilt in space wheelchair; obtained while on hospice; assists with changing of positions to help with feeding/trunk weakness and positioning;) - Integumentary Integumentary: reports: Dryness, Other (hx of breakdown) - Neurological Neurological: reports: Other (nonverbal) - Psychiatric Psychiatric: reports: Other (anxiety/agitation demonstrated with tremors/shaking; resistance to care) - Hematologic/Lymphatic Hematologic/Lymphatic: reports: Recurrent infections (last pneumonia in August 2017) - All Other Systems All Other Systems: reports: Other (limited ROS) Physical Exam - Vital Signs Temperature: 96.8 C Pulse Rate: 69 Respiratory Rate: 18 O2 Saturation: 93 (ra @rest) Blood Pressure: 112/64 - Physical Exam General Appearance: positive: No acute distress, Alert Eyes Bilateral: positive: Normal inspection ENT: positive: No signs of dehydration, Other (few teeth; poor dentition) Neck: positive: No JVD, Trachea midline Cardiovascular: positive: Regular rate & rhythm Respiratory: positive: Breath sounds nml Abdomen: positive: Non-tender, Soft, Nml bowel sounds Skin: positive: Pallor, Dryness, Other (scratches on right hand). negative: Pressure wound Extremities: positive: No pedal edema, Other (mild contractures of joints; crosses legs) Neurologic/Psychiatric: positive: Weakness, Other (follow with eyes; some behavioral responses of movement/resistance on exam; relaxed as talked through visit) Palliative Care - POLST Patient has POLST: Yes POLST Status: DNR, Comfort Measures Pain: Location (no pain behaviors observed) Constipation: No (bowels move every other day per log/CG) Performance Status: Patient is bedbound, and less transitioned with a Chris lift into tilt in space wheelchair. Is totally dependent for caregivers for feeding, all ADLs, does have fluctuating awareness. - Palliative Care Discussion: Follow-up with daughter Charlee, she continues to struggle with weighing benefits and burdens of moving forward if he were to aspirate again regarding antibiotic treatment. Reviewed can treat with oral antibiotics in home setting, but depending on patient's condition and status at the time, may drive the decision and or the response. Agreed to alert PCP, as palliative care consultative with out call, about tentative plan and update as condition changes. She feels his quality of life is continued to deteriorate, she has been very close to her father, speaks fondly of him. She does know who her dad is and feels his jerzy went away, which was about a year and a half ago. She remains committed to making sure he is cared for, his quality of life is as good as it can be. But does feel hospitalization would be more traumatizing and not what she would want for him at this time. He does have a POLST in place with comfort measures and DNAR. Erum Morales (Tori), is both guardian and his youngest daughter. Discussion also about QOL and comfort feedings, given patient's current status would not recommend changing diet restrictions/orders at this time. Impression and Recommendations - Palliative Care Impression: This is a 72-year-old gentleman with frontal lobe dementia, recently discharged from hospice for non-terminal status. He is supported by 24-hour caregivers in the home, has continued to show progressive functional and cognitive decline. Patient remains at risk for aspiration pneumonia with his cognitive decline, but tolerating current mechanical soft with thickened liquids. Given goal is for remaining time to focus on quality of life issues, will not make any changes but adjust according to fluctuating awareness. Palliative care to provide support, patient is homebound, and transition to hospice when patient begins declining. Recommendations/Counseling Done: 1. Dysphagia. Patient has regained some strength, is eating without significant difficulty, with his FLD diagnosis, will remain at risk even with more restrictive diet. Written instructions sent for caregivers/daughter Diet instructions: Please adjust accordingly to patients level of alertness and ability to participate in eating Mechanical Soft with Thickened liquids and aspiration precautions which include: Sitting upright and positioned with head supported; awake and alert Liquids from a straw Cut food up in small bites/and allow only small sips Alternated liquids with solids to create smooth passage Make sure has swallowed and cleared bite before allowing more When finished with meal, make sure mouth cavity clear and not pocketing any solids Aggressive oral care If patient less alert but note difficulty with above focus more on pureed foods/soft and moist small bites 2. Frontal lobe dementia. Patient has had self-inflicted injuries secondary to agitation. These seems to have abated with recent discontinuation of medications. He does have some abrasion on his right hand. They use soft toys for him to work with. No significant issues to meet a threshold, for reconsidering medicating at this point. 3. Generalized weakness. Patient is bedbound and wheelchair bound. Does require Chris lift for transfer. Given patient's lack of trunk stability, risk of aspiration, and need for immediate change in positions. We will go ahead and pursue tilt in space wheelchair approval. This has been helpful with the transition to hospice, but is no longer covered without Medicare CMN. 4. Advanced care planning. Daughter struggling with concern regarding patient's having recurrent aspiration pneumonia. Would not want him rehospitalized at this point, is still weighing benefits and burdens of moving forward with antibiotic treatment. Did discuss in the context of his trajectory can weigh at benefit and burden that decision arises. Will follow up with PCP regarding goal at this point, would most likely be to treat. This decision can be made in the context of his current functional status, cognitive status, and ability to take oral medications. Would consider transitioning back to hospice if appropriate. Patient still has comfort care kit in home from hospice if needed for management of distress. Did not list these on medication list. Will confirm contents at next visit; usually have morphine/haldol/lorazepam. Face to Face for HH PT; It is a taxing considerable effort for the patient to leave the home secondary to his advanced Frontal lobe dementia, patient requires a tilt and space wheelchair evaluation. Evaluate and treat, also regarding positioning, passive range of motion, and Chris transfer technique. Face to Face for Wheelchair: Patient due to his contractures, inability to participate in position changing is as a result of his frontal lobe dementia, has significant mobility limitations inside the home as well as outside the home. As a result patient needs a wheelchair as is completely reliant upon the wheelchair, and needs Chris lift to the wheelchair. Patient is nonambulatory so mobility limitation cannot be resolved by the use of a walker. Patient's home provides adequate access between rooms maneuvering space for the wheelchair, has caregivers who are able to provide assistance with a wheelchair. Because of his contractures, risk for aspiration secondary dysphagia and positioning needed when up for feeding, and need for positioning for pressure relief, a tilt in space wheelchair is needed. Has been using with good success as had access when on hospice. ADDENDUM: 12/29 Consult with PCP Christel HINKLE, she will put a note in the chart regarding treating patient with liquid Augmentin if patient presents over the weekend or career orientation teacher for presumed aspiration pneumonia. Will treat empirically given situation and goal to avoid hospitalization. Time Spent: 45 minutes with greater than 50% of this done in counseling regarding anticipatory guidance, and coordination of care with daughter and PCP.
== END 2017-12-25 11:01 | disposition home or self-care (01) ==
LOC: PC 11:00
PROVIDERS: ATTEND Nurse Practitioner Adult Health
DX: Z51.5 Encounter for palliative care (principal); R13.10 Dysphagia, unspecified; G31.09 Other frontotemporal neurocognitive disorder; F02.81 Dementia in other diseases classified elsewhere, unspecified severity, with behavioral disturbance; R53.1 Weakness; Z74.01 Bed confinement status; Z99.3 Dependence on wheelchair; F84.5 Asperger's syndrome; Z66 Do not resuscitate
CPT/HCPCS: 99343; 99349

== ENCOUNTER 2018-02-13 15:30 | Outpatient (CLI) | payer MEDICARE, OTHER ==
--- NOTE | 2018-02-13 19:05 | CONSULTATION NOTE ---
Palliative Care Follow Up - Referral Referring Provider: Christel HINKLE Time of Visit: 5187-5018 Referral setting: Home (It is a taxing considerable effort for the patient leave the home secondary to wheelchair-bound status and severe dementia) Referral Reason: Buttocks Wound - Information Sources Records reviewed: Previous records reviewed History/Review of Systems obtained from: Caregiver (Main caregiver Nidia) Exam limitations: Clinical condition (patient with severe dementia) - History of Present Illness Update Brief HPI Update: This is a 72-year-old gentleman who presents with frontal lobe dementia, recently discharged from hospice as "non-terminal". Patient's diagnosis was 2002, is continue study both cognitive and functional decline, with an exacerbation 2 years ago when he fractured his hip. This last year he was admitted to [facility] for second time in August with aspiration pneumonia, and given the context of goals was discharged with hospice support. He is continued to improve, has remained somewhat at baseline, which is tolerating mechanical soft diet and thickened liquids, no further episodes of infection, no symptoms of ongoing weight loss, had been having multiple skin issues and now presents with apparent shearing injury on left buttock. Patient at previous baseline was high functioning Asperger's, in the context of this continues to have many tics and OCD behaviors, with rubbing and scratching. Patient still has issues around biting, grinding, and scratching. This is an acute visit just to deal with wound care, patient is in a tilt in space wheelchair, physical therapy working on getting him a new one. Patient does present with contractures, his breath sounds are clear, and appears well cared for. Social History - Living Situation Living arrangement: At home Living Situation: With caregiver(s) Support System: Patient has 24-hour caregivers, daughter and guardian [place] scheduling and schedule. In meeting with regular caregiver who is with him 4 days a week Amanda. Medications/Allergies - Medications Home Medications: Ambulatory Orders Medication Instructions Recorded Confirmed Sennosides [Senna] 8.6 mg PO BID 01/27/16 12/25/17 Lactobacillus Acidophilus 1 each PO DAILY 09/08/17 12/25/17 [Probiotic Acidophilus] Multivitamin [Theragran] 1 each PO DAILY 09/08/17 12/25/17 Polyethylene Glycol 3350 [Miralax] 17 gm PO DAILY PRN 09/08/17 12/25/17 Acetaminophen 1,000 mg PO BID 12/25/17 12/25/17 Loratadine [Allergy Relief] 10 mg PO DAILY 12/25/17 12/25/17 Tumeric 500 mg PO DAILY 12/25/17 - Allergies Allergies/Adverse Reactions: Allergies Allergy/AdvReac Type Severity Reaction Status Date / Time No Known Drug Allergies Allergy Verified 09/05/17 23:19 Review of Systems - Constitutional Constitutional: reports: Weight stable - Respiratory Respiratory: reports: Cough (occasional with eating). denies: SOB at rest - Gastrointestinal Gastrointestinal: reports: Good appetite (have had to modify as do not have access to kitchen with broken pipes and repairs). denies: Constipation - Genitourinary Genitourinary: reports: Incontinence - Musculoskeletal Musculoskeletal: reports: Stiffness, Muscle weakness, Transfer issues (Patient we Chris lift, dominant does to stand and pivot transfer, though does admit patient's increased weakness and stiffness is making this more difficult. Do have a new electric Chris lift, but awaiting for motor to be replaced. Suspect some of this shearing is when patient falls back and slides down into tilt wheelchair.) - Integumentary Integumentary: reports: Dryness - Neurological Neurological: reports: Memory problems, Other (nonverbal) - Hematologic/Lymphatic Hematologic/Lymphatic: denies: Recurrent infections - All Other Systems All Other Systems: reports: Other (limited ROS with multiple caregivers) Physical Exam - Vital Signs Temperature: 97.1 C Pulse Rate: 83 Respiratory Rate: 18 O2 Saturation: 95 (ra @ rest) Blood Pressure: 128/72 - Physical Exam General Appearance: positive: Alert Eyes Bilateral: positive: Normal inspection ENT: positive: No signs of dehydration Neck: positive: Trachea midline, Stiff neck Cardiovascular: positive: Regular rate & rhythm Respiratory: positive: No respiratory distress, Diminished in bases. negative: Wheezes, Rales, Rhonchi Abdomen: positive: Soft Skin: positive: Wound (roughened shallow skin with moist desquamation; about 3 x 3 cm on left upper buttock area; suspect shearing injury by placement and appearance; recommended chris lift only to avoid sliding of patient back into chair) Extremities: positive: No pedal edema, Other (stiff; knees bent; difficult to straighten arms;) Neurologic/Psychiatric: positive: Flat affect, Other (some facial movements/grinding; resistance at first but calmed through visit) Palliative Care - POLST Patient has POLST: Yes POLST Status: DNR, Comfort Measures Pain: Comment (no pain behaviors observed or reported) Sleep: Sleeps well Constipation: No - Palliative Care Discussion: Patient has a CRISTIANO ST in place with comfort measures only and DNA Merissa Morales (TORI ) [phone] is both guardian and his youngest daughter. Impression and Recommendations - Palliative Care Impression: This is a 72-year-old gentleman with frontal lobe dementia, supported by 24-hour caregivers in the home. He has had very slow functional and cognitive decline, remains at high risk for aspiration pneumonia, but currently tolerating mechanical soft with thickened liquids. Goals remain to focus on quality of life issues. Patient presents today with buttocks wound, secondary to shearing. Palliative care to provide support, patient is homebound, and transition to hospice when appropriate Recommendations/Counseling Done: 1. Shearing injury, left buttock. Area examined, recommendations to use Chris lift for all transfers at this point. Patient does fall back into the wheelchair, suspect slide down backside is adding to trauma. Area cleansed with warm water, and Mepilex sacral border dressing applied. Instructed to keep on and less significantly soiled, left 1 for follow-up, most likely she will heal fairly quickly. Instructed to call if any signs or symptoms of infection or no improvement. Can initiate home health if indicated. 2. Dysphagia. Patient without any symptoms of aspiration or decline. Patient is on mechanical soft with thickened liquids diets. Caregiver present reports patient eating without difficulty, have had to modify diet secondary to flooding in the kitchen, and using microwavable wheels. 3. Frontal lobe dementia. Patient often gets self-inflicted injury secondary to agitation, does have one on his thigh, using soft toys and distraction. No significant issues to meet threshold per caregiver report, will consider without further medication changes. 3. Generalized weakness. Patient is bedbound and wheelchair-bound. Does require Chris lift for transfers, requested consistent only used versus pivot transfers. In pursuit of a tilt in space wheelchair approval, they have prepared the current one, but looking to replace. 4. Advanced care planning. CRISTIANO ST in place. This is an acute visit have not made contact with daughter yet will follow-up if any other further concerns. Time Spent: 30 minutes with greater than 50% of this done in counseling regarding pressure relief and coordination of care with caregivers.
== END 2018-02-13 15:31 | disposition home or self-care (01) ==
LOC: PC 15:30
PROVIDERS: ATTEND Nurse Practitioner Adult Health
DX: Z51.5 Encounter for palliative care (principal); R13.10 Dysphagia, unspecified; G31.09 Other frontotemporal neurocognitive disorder; F02.81 Dementia in other diseases classified elsewhere, unspecified severity, with behavioral disturbance; R53.1 Weakness; Z99.3 Dependence on wheelchair; Z66 Do not resuscitate
CPT/HCPCS: 99348

== ENCOUNTER 2018-02-18 15:30 | Outpatient (CLI) | payer MEDICARE, OTHER ==
--- NOTE | 2018-02-18 20:17 | CONSULTATION NOTE ---
Palliative Care Follow Up - Referral Referring Provider: Christel HINKLE Time of Visit: 9299-0176 Referral setting: Home (It is a taxing considerable effort for the patient to leave the home secondary to dementia, and wheelchair-bound status.) Referral Reason: Forehead abrasion/FLD - Information Sources Records reviewed: Previous records reviewed History/Review of Systems obtained from: Caregiver (Nidia caregiver present; has cared for patient for 3 years) Exam limitations: Clinical condition (patient nonverbal) - History of Present Illness Update Brief HPI Update: This is a 72-year-old gentleman with frontal lobe dementia, recently discharged from hospice as "non-terminal". Patient's diagnosis was in 2002, is continued to have steady cognitive and functional decline, but had an exacerbation 2 years ago when he fractured his hip. Previous to this time he actually had been fairly ambulatory, and managed at home with 24-hour caregivers. He was admitted to hospice from acute hospitalization for aspiration pneumonia in August, currently has continued to tolerate mechanical soft diet and thickened liquids, with no further infections, no symptoms of ongoing weight loss, but has had continuous multiple skin issues both related to pressure and self-inflicted injury. Patient does have multiple tics, issues around grinding, scratching, recently seen for shearing injury on his buttocks. This is an acute visit secondary to concern regarding to abrasion on his right forehead, unclear related to the timing of the injury, but first documentation and caregiver notes is 02/17 noted in the a.m. I was requested by his D RAINER and daughter elyssa, to evaluate, regarding etiology and concern if caregiver neglect. Patient does have a abrasion on his right forehead 2.5 x 3.5 cm, appears more like trauma and scraped. Patient is transferred by Chris, unclear if it could have happened during transfer, or if patient could have self-inflicted though usually he scratches his hands and thighs. Caregiver I spoke to early on the phone Amanda, reported that had been swelling and "a lump". On examination no swelling, no bruising or fading bruise noted at this point in time.In conjunction or could have been his glasses that he scraped up over his forehead, given the shallow nature, would have occurred as a scrape and now is filled in with some scabbing. He also has new scrapes and redness on his right hand, caregiver reports these are fairly consistent in appearance from his self- inflicted injuries, he tends to scratch his hands and where he can reach on his thighs. He does have 2 x 3 cm patch of raised reddened area, somewhat blistery in appearance, on his left thigh that appears to be healing as well. His shearing injury on his left buttocks is filling in, no further trauma noted, and dressing replaced. Social History - Living Situation Living arrangement: At home Living Situation: With caregiver(s) Support System: Patient is cared for by 24-hour caregivers, unfortunately has lost some nighttime care giving shifts. This is always quite anxiety producing for the daughter to be able to provide 24-hour care. It is a max of agencies and private caregivers. She does oversee the care, she does have some main caregivers that have been consistent over the years. Unfortunately there was some water damage in the kitchen, this is made more difficult for meal prep and cleanup. Medications/Allergies - Medications Home Medications: Ambulatory Orders Medication Instructions Recorded Confirmed Sennosides [Senna] 8.6 mg PO BID 01/27/16 02/18/18 Lactobacillus Acidophilus 1 each PO DAILY 09/08/17 02/18/18 [Probiotic Acidophilus] Multivitamin [Theragran] 1 each PO DAILY 09/08/17 02/18/18 Polyethylene Glycol 3350 [Miralax] 17 gm PO DAILY PRN 09/08/17 02/18/18 Acetaminophen 1,000 mg PO BID 12/25/17 02/18/18 Loratadine [Allergy Relief] 10 mg PO DAILY 12/25/17 02/18/18 Tumeric 500 mg PO DAILY 12/25/17 02/18/18 - Allergies Allergies/Adverse Reactions: Allergies Allergy/AdvReac Type Severity Reaction Status Date / Time No Known Drug Allergies Allergy Verified 09/05/17 23:19 Review of Systems - Eyes Eyes: reports: Corrective lenses - Ears, Nose & Throat Ears, Nose & Throat: reports: Dental decay - Respiratory Respiratory: reports: Cough (with eating; not at rest). denies: SOB at rest - Gastrointestinal Gastrointestinal: reports: Good appetite. denies: Constipation - Genitourinary Genitourinary: reports: Incontinence - Musculoskeletal Musculoskeletal: reports: Stiffness, Limited range of motion, Muscle weakness, Transfer issues (chris lift used for most transfers; depending on caregiver) - Integumentary Integumentary: reports: Other (new abrasion right forehead; left thigh abrasion; right hand with abrasions) - Neurological Neurological: reports: Memory problems, Other (nonverbal) - Psychiatric Psychiatric: reports: Behavior disturbances (can be resistant to care; has ticks and self inflicted harm behaviors; use soft toys/gloves to minimize injury) - Hematologic/Lymphatic Hematologic/Lymphatic: denies: Recurrent infections - All Other Systems All Other Systems: reports: Other (limited ROS) Physical Exam - Vital Signs Temperature: 96.9 C Pulse Rate: 80 Respiratory Rate: 18 O2 Saturation: 95 (ra @ rest) Blood Pressure: 92/68 - Physical Exam General Appearance: positive: No acute distress, Anxious Eyes Bilateral: positive: Normal inspection, PERRL, Conjunctivae nml ENT: positive: Other (poor dentition) Neck: positive: No JVD, Trachea midline Cardiovascular: positive: Regular rate & rhythm Respiratory: positive: Diminished in bases. negative: Wheezes, Rales, Rhonchi Abdomen: positive: Soft, Nml bowel sounds Skin: positive: Pallor, Other (see hpi) Extremities: positive: No pedal edema Neurologic/Psychiatric: positive: Weakness, Flat affect, Other (Was sleeping on arrival, was easily aroused. Was able to engage with some eye contact. No verbalization. Patient with resistance on examination, rolling of fingers upper extremity tremors and stiffness on exam.) Palliative Care - POLST Patient has POLST: Yes POLST Status: DNR, Selective Treatment Pain: Comment (patient receiving 1000 mg APAP BID) Drowsiness/Sedation: Comment (Fluctuating awareness, caregivers take cues from patient. Is several times and tilt in space wheelchair during the day.) Anorexia: None (Charted intake is mostly 100% of diet. Does have some fluctuation in intake as well as awareness per notes) Constipation: No - Palliative Care Discussion: Call to Shameka patient's daughter/D RAINER. She presents with concerns regarding no one really able to explain the etiology of the abrasion. We did discuss if patient had scraped it may not been apparent at first as it was quite shallow, and scabbed up later. Patient has known self-inflicted injury, she had seen him over the weekend, has raised her hand to her his face. Reassured on exam no other further injuries noted, she wanted to make sure he had not been dropped or fallen out of bed. As best I can tell was reassured. Patient without any sequela, and abrasion healing. Did express her frustration at trying to keep 24-hour care, [place], did discuss may recommend start looking for a facility or home close to her. There is a service called home from [employer], that often matches people up with her needs, will provide link for elyssa.Now has added level of stress, trying to get remodel and damage done from water. Given the holidays not many people available to do the work. This is made it more complicated for caregiving as well Impression and Recommendations - Palliative Care Impression: This is a 72-year-old gentleman with frontal lobe dementia, supported in his home by 24-hour caregivers. Patient seen acutely regarding right forehead abrasion, patient without other signs of injury, and is healing well. Patient has had very slow functional and cognitive decline, remains at high risk for aspiration pneumonia, but currently tolerating mechanical soft with thickened liquids. Goals remain to focus on quality of life issues and transition to hospice when appropriate Recommendations/Counseling Done: 1. Forehead abrasion. This presents with unknown etiology, could be self- inflicted injury, or related to transfers with Chris. Does appear to be healing without any problems, no other acute injuries indicative of falls are further trauma. Follow-up with daughter provided regarding concerns. 2. Left thigh trauma injury. This does appear to be healing as well, no signs or symptoms of cellulitis, counseled to continue to provide coverage for protection. 3. Shearing injury left buttock. Dressing no longer on area, replaced with Mepilex sacral border dressing. Does appear to be healing, no further signs of pressure. 4. Dysphagia. Patient without any symptoms of aspiration, lungs clear. 5. Frontal lobe dementia. Patient does get self-inflicted injury secondary to agitation, using soft toys and distraction. We will continue to monitor if meets the threshold for reconsideration for medication changes. 6. Advanced care planning. CRISTIANO GOMEZ in place. Spoke with Shameka, challenged to continue 24-hour caregiving particularly nighttime shifts. [place]. Counseling provided regarding perhaps placement closer to her. There is a agency that matches patients and placement options, will provide this information. Time Spent: 30 minutes was given 50% of this done in counseling regarding managing skin issues, review of current care plan, follow-up with daughter and coordination of care.
== END 2018-02-18 15:31 | disposition home or self-care (01) ==
LOC: PC 15:30
PROVIDERS: ATTEND Nurse Practitioner Adult Health
DX: Z51.5 Encounter for palliative care (principal); R13.10 Dysphagia, unspecified; G31.09 Other frontotemporal neurocognitive disorder; F02.81 Dementia in other diseases classified elsewhere, unspecified severity, with behavioral disturbance; Z99.3 Dependence on wheelchair; Z66 Do not resuscitate
CPT/HCPCS: 99348

== ENCOUNTER 2018-03-26 14:00 | Outpatient (CLI) | payer MEDICARE, OTHER ==
--- NOTE | 2018-03-26 15:54 | CONSULTATION NOTE ---
Palliative Care Follow Up - Referral Referring Provider: Christel HINKLE Time of Visit: 5184-2464 Referral setting: Home (It is a taxing and considerable effort for the patient to leave the home secondard to frontal lobe demenita/wheelchair bound status; to facilitate treatment plan) Referral Reason: Frontal Lobe Dementia/Skin issues - Information Sources Records reviewed: Previous records reviewed History/Review of Systems obtained from: Caregiver (regular caregiver Amanda present for visit) Exam limitations: Clinical condition (patient nonverbal) - History of Present Illness Update Brief HPI Update: This is a 72-year-old gentleman with frontal lobe dementia, originally diagnosed in 2002, continue to have steady cognitive and functional decline, but had an exacerbation 2 years ago when he fractured his hip. He was admitted to hospice for an acute hospitalization for aspiration pneumonia in 08/2017, was discharged for non-terminal status as he did stabilize. He currently continues to tolerate mechanical soft diet and thickened liquids, no further infections, and no symptoms of ongoing weight loss. He does have multiple skin issues both related to intermittent pressure, most recently incontinence of stool, and self- inflicted injury related to his multiple tics. In conjunction with his caregivers, have been evaluating bowels, and titrating back bowel program. Currently he is being managed on senna 1 tab 8.6 mg daily, no further MiraLAX, patient is eating 100% of his diet, and taking adequate fluids. He is perceived to be chewing well, does have some napping after meals, occasional choking, and no significant changes over the last several days. Palliative care has been asked to evaluate patient has patient is mostly bedbound/wheelchair bound. Patient's dependent on Chris lift now with all caregivers. He presents with a small dry patch area of his left thigh, as well as some perirectal redness, and a slightly purplish area which was of concern for DTI, but it does appear to be scar tissue and not pressure related. Social History - Living Situation Living arrangement: At home Living Situation: With caregiver(s) (patient has 24 hours caregivers; stable at this point; daughter Charlee oversees care and caregiver communications) Medications/Allergies - Medications Home Medications: Ambulatory Orders Medication Instructions Recorded Confirmed Sennosides [Senna] 8.6 mg PO DAILY 01/27/16 03/27/18 Lactobacillus Acidophilus 1 each PO DAILY 09/08/17 03/27/18 [Probiotic Acidophilus] Multivitamin [Theragran] 1 each PO DAILY 09/08/17 03/27/18 Polyethylene Glycol 3350 [Miralax] 17 gm PO DAILY PRN 09/08/17 03/27/18 Acetaminophen 1,000 mg PO BID 12/25/17 03/27/18 Loratadine [Allergy Relief] 10 mg PO DAILY 12/25/17 03/27/18 Tumeric 500 mg PO DAILY 12/25/17 03/27/18 - Allergies Allergies/Adverse Reactions: Allergies Allergy/AdvReac Type Severity Reaction Status Date / Time No Known Drug Allergies Allergy Verified 09/05/17 23:19 Review of Systems - Eyes Eyes: reports: Corrective lenses - Respiratory Respiratory: reports: Cough (occasionally with eating). denies: SOB at rest - Gastrointestinal Gastrointestinal: reports: Good appetite, Other (bowels have settled with daily; more firm). denies: Vomiting - Genitourinary Genitourinary: reports: Incontinence - Musculoskeletal Musculoskeletal: reports: Stiffness, Limited range of motion, Muscle weakness, Transfer issues (using chris bed/tilt in space) - Integumentary Integumentary: reports: Rash (left thigh 3 cm area of dry flakey skin with fading satellite lesions/area where had trauma before), Dryness - Neurological Neurological: reports: General weakness, Memory problems, Other (nonverbal) - Psychiatric Psychiatric: reports: Other (TICS; hands constantly scratching/moving) - Hematologic/Lymphatic Hematologic/Lymphatic: denies: Recurrent infections - All Other Systems All Other Systems: reports: Other (limited ROS) Physical Exam - Vital Signs Temperature: 96.4 C Pulse Rate: 96 (somewhat resistant to exam) Respiratory Rate: 18 O2 Saturation: 93 (ra @ rest) Blood Pressure: 112/72 - Physical Exam General Appearance: positive: No acute distress, Other (awake and interactive at visit; making eye contact; following cg with eyes) Eyes Bilateral: positive: Normal inspection ENT: positive: No signs of dehydration Neck: positive: Trachea midline Cardiovascular: positive: Regular rate & rhythm Respiratory: positive: No respiratory distress, Diminished in bases. negative: Wheezes, Rales, Rhonchi Abdomen: positive: Soft, Nml bowel sounds Skin: positive: Rash (left thigh), Other (scarred area left of coccyx; healed from previous skin breakdown slightly light purple; Patient has scratch carrillo from self-inflicted injury on his right clavicle, slightly reddened but does appear to be healing. As well as scratches on his left hand.) Extremities: positive: No pedal edema Neurologic/Psychiatric: positive: Flat affect Palliative Care - POLST Patient has POLST: Yes POLST Status: DNR, Comfort Measures Pain: Pain unchanged, Location (stiffness; no grimacing with moving) Drowsiness/Sedation: Moderate (4-6) Constipation: No Performance Status: Patient totally dependent for all ADLs; caregivers bath 1-2 x week in shower chair; chris for transfers only now;inc. bowel/bladder; needs to be fed - Palliative Care Discussion: Patient does have a CRISTIANO ST in place, D and R and selective treatment. His D POA is his daughter Charlee Morales [phone]. She continues to manage caregivers from a far, there is also remodeling going on in the home, and has a young child as well as works. He currently have stable caregiving in place, no further conversation about placement. Continues to focus on wanting the best for her dad, evaluation and reassured patient currently without any significant concerns or changes in care plan needed Impression and Recommendations - Palliative Care Impression: This is a 72-year-old gentleman with frontal lobe dementia, he is supported in his home by 24-hour caregivers with his daughter providing oversight. Patient has had very slow functional and cognitive decline, remains at high risk for aspiration but currently tolerating mechanical soft diet with thickened liquids. Patient was having intermittent soft stools and diarrhea this is since been stabilized with decreased of senna. Goals remain to focus on quality of life issues and to transition back to hospice when appropriate Recommendations/Counseling Done: 1. Frontal lobe dementia. Patient does get intermittent self-inflicted injury secondary to agitation, using soft toys and distraction as well as monitoring. At this point in time does not appear to be problematic, will continue to monitor if meets the threshold for reconsideration for medication changes. 2. Dysphagia. Lungs clear, patient without any symptoms of aspiration. Caregivers report only occasional coughing, good intake and using thickened liquids. 3. Rash on his left thigh. Unclear if this is candidiasis are some version of eczema. Will trial Clortrimazole for 7-10 days, If does not improve will try triamcinolone. 4. Advanced care planning. CRISTIANO ST in place, currently stabilized 24-hour caregiving. Patient without any acute signs or symptoms of decline, palliative care will remain available to address caregiving concerns or issues given patient's homebound status Time Spent: 45 minutes with greater than 50% of this done in evaluation of patient in home setting, coordination of care with daughter and caregiver, and anticipatory guidance
== END 2018-03-26 14:01 | disposition home or self-care (01) ==
LOC: PC 14:00
PROVIDERS: ATTEND Nurse Practitioner Adult Health
DX: Z51.5 Encounter for palliative care (principal); G31.09 Other frontotemporal neurocognitive disorder; R15.9 Full incontinence of feces; R13.10 Dysphagia, unspecified; R21 Rash and other nonspecific skin eruption; R32 Unspecified urinary incontinence; M25.60 Stiffness of unspecified joint, not elsewhere classified; Z99.3 Dependence on wheelchair; Z87.01 Personal history of pneumonia (recurrent); Z66 Do not resuscitate
CPT/HCPCS: 99349

== ENCOUNTER 2018-04-22 15:54 | Outpatient (CLI) | payer MEDICARE, OTHER ==
--- NOTE | 2018-04-22 16:31 | CONSULTATION NOTE ---
Palliative Care Follow Up - Referral Referring Provider: Christel HINKLE Time of Visit: [id number] Referral setting: Home Referral Reason: Frontal Lobe Dementia/Stage II decub - Information Sources Records reviewed: Previous records reviewed, Other (caregiver logs) History/Review of Systems obtained from: Caregiver (Amanda very familiar with patient) Exam limitations: Clinical condition (patient nonverbal) - History of Present Illness Update Brief HPI Update: This is a 72-year-old gentleman with frontal lobe dementia, originally diagnosed in 2002. He has continued to have steady cognitive and functional decline, and with an exacerbation 2 years ago when he fractured his left hip. He did have an acute hospitalization for aspiration pneumonia in 08/2017 and was admitted to hospice, but was discharged after several months for non-terminal status as he has continued to stabilize. He continues to fluctuate as far as ongoing awareness, but has consistently been able to tolerate a mechanically soft diet and thickened liquids. He does not appear to have any symptoms of weight loss, he has had no further infections, but continues to have intermittent choking with eating. He does have multiple skin issues, both related to intermittent pressure, incontinence of stool, self-inflicted injury related to his multiple tics. He also has issues related to transfers and shearing injuries, patient is quite stiff, and is Chris transfer. Palliative care has been asked to reevaluate regarding skin issues, patient is awake and alert, makes eye contact with caregiver, is somewhat resistant to exam, but does not appear in any kind of acute distress. No cough present during visit, breath sounds are clear, patient does have tremors and extremities are cool. Patient does have small open area of 1 and half centimeters shallow stage II on actually upper sacral area, looks like a combination of pressure and sharing injury. He continues with a persistent patch of faint pink redness on his left thigh. This originally was a site of trauma injury. Patient does scratch and rub frequently. He does have some scratches on his lower arms. Patient is also recently lost a crown, he is going to the dentist tomorrow. Concern regarding patient able to express pain, does not have fever or chills, no abscess or lymphadenopathy noted. The patient is at high risk for infection. Social History - Living Situation Living arrangement: At home Living Situation: With caregiver(s) Support System: Patient is managed in the home setting with 24-hour caregivers, currently stable. Daughter elyssa oversees care and caregiver communications. In meeting with his regular caregiver Amanda today, she has been with him for several years, and oversees multiple care issues. She will be taking him to the dentist and to get a haircut tomorrow. Medications/Allergies - Medications Home Medications: Ambulatory Orders Medication Instructions Recorded Confirmed Sennosides [Senna] 8.6 mg PO DAILY 01/27/16 03/27/18 Lactobacillus Acidophilus 1 each PO DAILY 09/08/17 03/27/18 [Probiotic Acidophilus] Multivitamin [Theragran] 1 each PO DAILY 09/08/17 03/27/18 Polyethylene Glycol 3350 [Miralax] 17 gm PO DAILY PRN 09/08/17 03/27/18 Acetaminophen 1,000 mg PO BID 12/25/17 03/27/18 Loratadine [Allergy Relief] 10 mg PO DAILY 12/25/17 03/27/18 Tumeric 500 mg PO DAILY 12/25/17 03/27/18 - Allergies Allergies/Adverse Reactions: Allergies Allergy/AdvReac Type Severity Reaction Status Date / Time No Known Drug Allergies Allergy Verified 09/05/17 23:19 Review of Systems - Constitutional Constitutional: reports: Weight stable. denies: Fever - Ears, Nose & Throat Ears, Nose & Throat: reports: Dental decay - Respiratory Respiratory: reports: Cough (noted with eating only) - Gastrointestinal Gastrointestinal: reports: Good appetite. denies: Constipation (regular formed soft stools) - Genitourinary Genitourinary: reports: Incontinence - Musculoskeletal Musculoskeletal: reports: Stiffness, Limited range of motion, Muscle weakness, Transfer issues (use chris to transfer; up to table for eating at least 1-2 x a day; up in tilt in space wheelchair) - Integumentary Integumentary: reports: Rash, Dryness - Neurological Neurological: reports: Other (patient nonverbal; unable to communitcate) - Psychiatric Psychiatric: reports: Other (tics/tremors) - Hematologic/Lymphatic Hematologic/Lymphatic: denies: Recurrent infections - All Other Systems All Other Systems: reports: Other (limited ROS) Physical Exam - Vital Signs Temperature: 96.9 C Pulse Rate: 92 Respiratory Rate: 16 Blood Pressure: 102/62 - Physical Exam General Appearance: positive: No acute distress Eyes Bilateral: positive: Normal inspection ENT: positive: No signs of dehydration, Other (no signs of abcess) Neck: positive: Stiff neck. negative: Lymphadenopathy (R), Lymphadenopathy (L) Cardiovascular: positive: Regular rate & rhythm Respiratory: positive: Breath sounds nml, Diminished in bases. negative: Wheezes, Rales, Rhonchi Abdomen: positive: Soft. negative: Distended Skin: positive: Pallor, Dryness, Rash (oval 3 x 4 cm dull pink surface rash; had use clortimazole on area without improvement;), Pressure wound (left sacral area 1.5 cm shallow moist area imposed on 2-3 cm area of scarring.), Other Extremities: positive: No pedal edema Neurologic/Psychiatric: positive: Other (patient nonverbal; does respond and watch caregiver Amanda through visit; rubbing hands and increased tremors wtih exam or when approached by [employer]LECT[employer]ALLATION INSPECTOR;) Palliative Care - POLST Patient has POLST: Yes POLST Status: DNR, Comfort Measures Pain: Comment (no pain behaviors noted) Drowsiness/Sedation: Comment (caregivers have charted patient less responsive this week;) Sleep: Sleeps well Constipation: No - Palliative Care Discussion: Follow-up with daughter regarding visit, continues to struggle with overseeing care from a far. Wants focus to continue to be on quality of life and comfort issues. Has been difficult with the remodel, wondering about further remodeling to be done, and possible respite placement. Reviewed local resources as far as memory care units and [facility] with their own support team. Discussed though given disruption and patient doing better with routine, encouraged to consider waiting until at a later date when patient either placed or passed. Daughter continues to check on patient on a regular basis, is in close contact with caregivers, tries to weigh responses in the context of changes. Multiple input and feedback and opinions making it complicated to get the whole picture. Impression and Recommendations - Palliative Care Impression: This is a 72-year-old gentleman who has long-standing frontal lobe dementia, who has been having a slow functional and cognitive decline, has not had any acute symptoms or infections recently. Patient with intermittent skin issues, remains weight neutral, continues with difficulty with dysphagia but currently without any acute symptoms of respiratory compromise. Patient is supported by 24 7 paid caregivers, adding to the complexity of getting a clear picture of patient's status, daughter oversees care. Palliative care to provide support, until patient continues more acute decline and transitions back to hospice. Recommendations/Counseling Done: 1.Frontal lobe dementia. Patient does have multiple tics, is quite stiff, has upper extremity tremors. Does inflict self injuries with his scratching, currently is not requiring medications for this, continue to evaluate for threshold of concern for safety and comfort. 2. Dysphagia. Patient Been reportedly more listless, and less responsive. Patient bright and interactive during my visit, lungs were clear, patient does continue have intermittent choking, but has continued to eat his regular amounts of mechanical soft and thickened liquids. 3. Rash on left thigh. Had trialed Clortrimazole, without improved. Dull pink, does appear quite faded. Will initiate trial of actually hydrocortisone cream, as it is mild in nature. Patient does have a small palpable 1 cm area on right thigh, may be ingrowing hair, but does not present with redness, tenderness, or of concern at this point in time. 4. Stage II decub on left sacral area. This is combined shearing and most likely pressure points. Patient is a Chris transfer, suspect this adds to the trauma. Cleansed and placed Mepilex 4 x 4 border dressing both for healing and protection. Will order to shield, to see if Medicare will cover. 5. Dental decay. Patient is to see dentist tomorrow for broken crown. Patient with immunocompromise, at high risk for infection, may have added to his change in perceived condition. 6. Advanced care planning. Follow-up with daughter goals remain to focus on comfort, she does recognize the complexity of the situation with multiple caregivers, patient's fluctuating status, and high risk for recurrent events. We will continue to respond to concerns but did review the limitations of palliative care as a consultative service. Time Spent: 30 minutes with greater than 50% of this done in coordination of care, counseling with caregivers, and anticipatory guidance with daughter
== END 2018-04-22 15:55 | disposition home or self-care (01) ==
LOC: PC 15:54
PROVIDERS: ATTEND Nurse Practitioner Adult Health
DX: Z51.5 Encounter for palliative care (principal); G31.09 Other frontotemporal neurocognitive disorder; F02.80 Dementia in other diseases classified elsewhere, unspecified severity, without behavioral disturbance, psychotic disturbance, mood disturbance, and anxiety; G25.69 Other tics of organic origin; R13.10 Dysphagia, unspecified; R23.8 Other skin changes; L89.152 Pressure ulcer of sacral region, stage 2; K02.9 Dental caries, unspecified; K08.531 Fractured dental restorative material with loss of material; I10 Essential (primary) hypertension; R15.9 Full incontinence of feces; Z87.01 Personal history of pneumonia (recurrent); Z74.01 Bed confinement status; Z66 Do not resuscitate
CPT/HCPCS: 99348

== ENCOUNTER 2018-07-06 17:00 | Outpatient (CLI) | payer MEDICARE, OTHER ==
--- NOTE | 2018-07-06 20:09 | CONSULTATION NOTE ---
Palliative Care Follow Up - Referral Referring Provider: Christel HINKLE Time of Visit: [phone] Referral setting: Home Referral Reason: Cough/Frontal Lobe Dementia/Nonstageable Decub buttock - Information Sources Records reviewed: Previous records reviewed History/Review of Systems obtained from: Caregiver Exam limitations: Clinical condition (patient non verbal) - History of Present Illness Update Brief HPI Update: This is a 72-year-old gentleman with frontal lobe dementia, originally diagnosed in 2002. He has had steady decline, with an exacerbation 2 years ago when he fractured his left hip. He did have an acute hospitalization for aspiration pneumonia in 08/2017 and was admitted to hospice, but his discharge after several months for non-terminal status. He does fluctuate as far as ongoing awareness, intermittent skin issues, but has been consistently able to still tolerate a mechanical soft diet and thickened liquids. Most recently had issues regarding a broken crown, was seen actually at the dentist, with recommendation to pull all his teeth. Given the traumatizing effect of this, and his daughter did seek a second opinion and was recommended to leave things as they were. Patient does have poor dentition, few teeth just left, with broken teeth but so far has been able to manage with no signs or symptoms of pain. Presenting symptom patient with moist cough, call from caregiver this morning this is a new symptom. Patient is without fever or chills, presents with a temp of 97.3 his O2 sats at 95%, though he does have some upper airway rhonchi, and a moist cough, he is not in any kind of distress. His pulse is 88 his blood pressure 122/72. He has been reported to be spending more time sleeping, but this is been a gradual decline, and would be expected in the context of his disease process. Patient's bed has been broken, is unable to raise, unclear if this is adding to his ability to manage her lack of ability to manage his secretions. Patient has been able to eat today, he does have fluctuating intake, but for the most part manages to stay hydrated and eats 3 times a day. And follow-up did do a arm circumference, right is 25, left is 25.5 cm, last documented circumference from hospice on the left was 26 cm. Patient does have upper and lower extremity muscle wasting, and does appear to be somewhat thinner in the face with temporal wasting. Patient does have a 2 cm dried area on his left buttock, has been moist in the past and stage II. There is a thin layer of eschar over it, they have been keeping it protected with Mepilex. Social History - Living Situation Living arrangement: At home Living Situation: With caregiver(s) Support System: Patient is managed in his home setting with 24-hour caregivers, currently toys is here to do a shift. They have had intermittent caregiving issues around covering shifts of 24/7 care, Charlee oversees care and schedule, is up a couple times a month to manage his care needs and household. Medications/Allergies - Medications Home Medications: Ambulatory Orders Medication Instructions Recorded Confirmed Sennosides [Senna] 8.6 mg PO DAILY 01/27/16 03/27/18 Lactobacillus Acidophilus 1 each PO DAILY 09/08/17 03/27/18 [Probiotic Acidophilus] Multivitamin [Theragran] 1 each PO DAILY 09/08/17 03/27/18 Polyethylene Glycol 3350 [Miralax] 17 gm PO DAILY PRN 09/08/17 03/27/18 Acetaminophen 1,000 mg PO BID 12/25/17 03/27/18 Loratadine [Allergy Relief] 10 mg PO DAILY 12/25/17 03/27/18 Tumeric 500 mg PO DAILY 12/25/17 03/27/18 - Allergies Allergies/Adverse Reactions: Allergies Allergy/AdvReac Type Severity Reaction Status Date / Time No Known Drug Allergies Allergy Verified 09/05/17 23:19 Review of Systems - Constitutional Constitutional: reports: Weight loss. denies: Fever, Chills - Ears, Nose & Throat Ears, Nose & Throat: reports: Dental decay - Respiratory Respiratory: reports: Cough (moist cough; not able to clear completely). denies: SOB at rest - Gastrointestinal Gastrointestinal: denies: Constipation (patient with regular stooling) - Genitourinary Genitourinary: reports: Incontinence - Musculoskeletal Musculoskeletal: reports: Stiffness (patient with increasing rigidity; upper arm contractures;), Transfer issues (use stephanie for transfers; up for at least 2 meals a day in tilt in space wheelchair) - Integumentary Integumentary: reports: Dryness - Neurological Neurological: reports: Other (Patient with "tics", is constantly rubbing and fidgeting with hands, does inflict self-harm with scratching, patient has gloves on today but does have some injuries to his tops of his hands with bandages in place.) - Psychiatric Psychiatric: reports: Anxiety (Very watchful during exam, does get more stiff and tight with more tremors when approached. Usually by the end of exam is within today does relax some.) - Hematologic/Lymphatic Hematologic/Lymphatic: denies: Recurrent infections - All Other Systems All Other Systems: reports: Other (limited ROS with multiple cgs) Physical Exam - Vital Signs Temperature: 97.3 C Pulse Rate: 88 Respiratory Rate: 18 O2 Saturation: 95 Blood Pressure: 122/72 - Physical Exam General Appearance: positive: Anxious, Cachetic. negative: Lethargic Eyes Bilateral: positive: Normal inspection ENT: positive: Other (broken teeth/poor dentition; unable to exam thoroughly) Neck: positive: No JVD, Trachea midline Cardiovascular: positive: Regular rate & rhythm Respiratory: positive: No respiratory distress, Diminished in bases, Rhonchi (upper airways; moist cough does not clear completely; no s/s distress) Abdomen: positive: Soft, Nml bowel sounds, Other (oozing soft brown stool) Skin: positive: Pressure wound (right buttock with thin layer of dried eschar 2 cm superimposed on scarring; has remained pretty stable from notes/report), Other (hands with various levels of healing of scratches; gloves on) Extremities: positive: No pedal edema, Other (stiff arms; unable to exam the extent of contractures UE;) Neurologic/Psychiatric: positive: Disoriented to person, Disoriented to place, Disoriented to time Palliative Care - POLST Patient has POLST: Yes POLST Status: DNR, Comfort Measures Pain: Comment (no signs of pain behaviors on exam) - Palliative Care Discussion: John's had come to provide caregiving support secondary to one caregiver being sick. They have had to juggle the schedule. He has provided support over the years, patient has been with steady decline since he has known him. 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 Call to daughter Charlee, discussed findings. Patient does have moist cough, most likely has aspirated. At this point in time he is managing secretions, has not presented with any overt signs or symptoms of infection, is eating and drinking. Does not present with any respiratory distress. Initiated conversation regarding goals of care, patient may able to clear this as he has had in the past, or may progress on to develop pneumonia. Initiated conversation regarding treatment or nontreatment, no decision to be made at this point in time just wanting to get clarification. Goal is to focus on comfort, and avoid hospitalization, will weigh benefits and burdens moving forward. This would include transition back to hospice particularly if choosing not to treat. Impression and Recommendations - Palliative Care Impression: This is a 72-year-old gentleman who has long-standing frontal lobe dementia, who has had a long slow functional and cognitive decline. Today presents with moist cough, no acute signs or symptoms of infection, assumption is he is most likely aspirated. Patient continues to have intermittent skin issues, slow weight loss, is sleeping more. Patient is supported by 23/09 paid caregivers, adding to the complexity of getting a clear picture of patient's ongoing status. Patient's daughter oversees his care. Palliative care to provide support until patient definitively presents with further acute decline, and transitions back to hospice Recommendations/Counseling Done: 1. Cough. Suspect patient most likely has aspirated, does have moist rhonchi, no respiratory distress vital signs are stable and O2 sats 95%. Patient does cough and regularly aspirate when eating and drinking. Today as best I can tell, this is more acute onset, and has remained somewhat more persistent through the day. Patient is able to continue to eat and drink, and has no changes in level of alertness from baseline. Counseling provided to daughter regarding current approach, there is nothing to treat at this point in time, will continue to wait and see if further signs or symptoms develop. Instructed to keep patient up for eating, has been more difficult with broken bed. They are obtaining a hospital bed temporarily as head of bed only goes up about 35 degrees. Reviewed aspiration precautions, not to feed or have patient drink if fluctuating level of awareness. Will monitor through caregiver report. Daughter is satisfied with current plan. 2. Frontal lobe dementia. Patient does have multiple tics, remains quite stiff and upper extremity tremors. Does continue to inflict self-harm with scratching, at this point in time we will continue to evaluate threshold regarding medication. This adds to some complexity in the decision-making, as if he is more sedated, more likely to aspirate. 3. Dysphagia. Patient is fluctuating in level of awareness, he is sleeping more. Today though he presents bright and interactive, caregivers continue to work with diet and textures. 4. Decub, unstageable on left sacral area. Again this is most likely combined shearing and pressure points. Cleansed and placed Mepilex 4 x 4 bordered dressing for healing and protection. Patient's today. 5. Dental decay. Patient does have broken crown, few teeth left, has had 2 opinions will at this point in time continue to monitor for any symptoms of infection or change in perceived condition and comfort. 6. Advanced care planning. Call to the patient's daughter regarding findings, discussion regarding goals of care. At this point in time there is no be made. There is significant complexity to the situation with multiple caregivers, patient's fluctuating status, and high risk for sequela of his dysphagia. Will monitor this week, and respond accordingly. We will do this in the context of weighing benefits and burdens including consideration of transition back to hospice if she is not to treat if develops pneumonia. Time Spent: 45 minutes with getting 50% of this done in coordination of care with caregivers and family, counseling to daughter provide anticipatory guidance and instruction for decreasing aspiration risk to caregivers
== END 2018-07-06 17:01 | disposition home or self-care (01) ==
LOC: PC 17:00
PROVIDERS: ATTEND Nurse Practitioner Adult Health
DX: Z51.5 Encounter for palliative care (principal); G31.09 Other frontotemporal neurocognitive disorder; L89.320 Pressure ulcer of left buttock, unstageable; R05 Cough; R32 Unspecified urinary incontinence; F41.9 Anxiety disorder, unspecified; K02.9 Dental caries, unspecified; Z74.01 Bed confinement status; Z66 Do not resuscitate; Z87.01 Personal history of pneumonia (recurrent)
CPT/HCPCS: 99349

== ENCOUNTER 2018-07-31 08:30 | Outpatient (CLI) | payer MEDICARE, OTHER ==
--- NOTE | 2018-07-31 11:15 | CONSULTATION NOTE ---
Palliative Care Follow Up - Referral Referring Provider: Christel HINKLE Time of Visit: [id number] Referral setting: Home Referral Reason: Aspiration Pneumonia/Frontotemporal lobe Dementia/Goals of Care - Information Sources Records reviewed: Previous records reviewed History/Review of Systems obtained from: Patient, Family (Daughter Charlee at visit;), Caregiver (Amanda chandraivier) Exam limitations: Clinical condition (patient nonverbal, very lethargic) - History of Present Illness Update Brief HPI Update: This is a 72-year-old gentleman with frontal temporal lobe dementia, originally diagnosed in 2002. Is continued to have a steady decline, originally with an exacerbation 2 years ago when he fractured his left hip. He does fluctuate as far as level of awareness. He did have an acute hospitalization in 08/2017 and was at that point in time admitted to hospice, but discharged after several months for non-terminal status. Over the last couple visits he has had more coughing, choking, and observed weight loss. He has had intermittent skin issues, but mostly is been able to tolerate mechanical soft and thickened liquids. Is having dental issues, as far as a broken crown, still has very poor dentition. He has been consistently aspirating, with eating, but it has been his jerzy him to continue to eat. He is cared for 23/09 by rotating caregivers. He has presented intermittently with chemical aspiration, but cleared up. I did get calls earlier in the week, patient's been fluctuating in level of awareness, intake, and continue with moist cough. He has been worse over the last 24-48 hrs., and have requested a visit. Patient presents is quite dehydrated, sunken face, dry skin, tenting. He does have rapid respiratory rate of about 28-32, that does increase with any kind of anxiety. He is tachycardia at 135, his O2 sats are 86%, he is breathing quite shallow but not distressed. He does have a rub in his left lower lung, no wheezing, caregivers report oral secretions earlier, is quiet right now. He has had intermittent low-grade temperature over the week, today presents at 97.8 but he is warm to touch and he is somewhat diaphoretic. Patient has not been able to swallow, so would not be a candidate at this point in time for a trial of oral antibiotics, and patient does present with signs and symptoms of imminent demise. Patient has had ongoing functional and cognitive decline, sleeping more, weight loss, and less good days than bad days, it is still very difficult and complicated decision for his daughter Charlee to transition to comfort measures. Palliative care present to discuss goals of care and make recommendations. Social History - Living Situation Living arrangement: At home Living Situation: With caregiver(s) Support System: Patient is managed in the home setting with tex 24-hour caregivers, currently there is schedule has been stable. Patient is with his regular caregiver Amanda today, who is appropriately supporting him as far as being calm, talking to him, creating a tex environment. Charlee his daughter came about 15 minutes into the visit, she oversees his care, last saw him about 2 weeks ago. He is maintained in his own home and family has done very well as far as focusing on quality of life keeping him in his own environment. Medications/Allergies - Medications Home Medications: Ambulatory Orders Medication Instructions Recorded Confirmed Acetaminophen [Feverall] 650 mg ME Q6HR PRN 07/31/18 07/31/18 LORazepam [Ativan] 0.5 mg SL Q6HR PRN 07/31/18 07/31/18 Morphine Sulfate [Morphine Sulf 5 mg SL .2 PRN 07/31/18 07/31/18 Oral (Roxanol)] - Allergies Allergies/Adverse Reactions: Allergies Allergy/AdvReac Type Severity Reaction Status Date / Time No Known Drug Allergies Allergy Verified 09/05/17 23:19 Review of Systems - Constitutional Constitutional: reports: Fatigue, Fever, Poor appetite, Weight loss. denies: Chills - Ears, Nose & Throat Ears, Nose & Throat: reports: Dental decay, Dry mouth - Respiratory Respiratory: reports: SOB at rest (shallow breathing per cg) - Gastrointestinal Gastrointestinal: reports: Other (no intake about 24 hours; choking has increased prioir weeks). denies: Constipation - Genitourinary Genitourinary: reports: Incontinence - Musculoskeletal Musculoskeletal: reports: Stiffness, Muscle weakness, Other (beboudn) - Integumentary Integumentary: reports: Dryness, Other (skin issues fluctuate on coccyx) - Neurological Neurological: reports: Memory problems (nonverbal) - Psychiatric Psychiatric: reports: Behavior disturbances (agitation with rubbing; tremors) - All Other Systems All Other Systems: reports: Other (limited ROS) Physical Exam - Vital Signs Temperature: 97.8 C Pulse Rate: 136 Respiratory Rate: 32 O2 Saturation: 86 Blood Pressure: 112/72 - Physical Exam General Appearance: positive: Mild distress Eyes Bilateral: positive: Other (dry and sunken) ENT: positive: Dry mucous membranes, Other (poor dentition) Neck: positive: Trachea midline Cardiovascular: positive: Tachycardia Respiratory: positive: Diminished in bases, Other (rub LLL;). negative: Wheezes Abdomen: positive: Non-tender, Soft, Other (concave/flat; inc. small amount soft brown stool) Skin: positive: Pressure wound (raw coccyx with hypergranulation tissue; no open "ulcer"; stage I on left hip) Extremities: positive: No pedal edema Neurologic/Psychiatric: positive: Disoriented to person, Disoriented to place, Disoriented to time, Flat affect, Other (lethargic; trembles with increase stimulation; able to be soothed) Palliative Care - POLST Patient has POLST: Yes POLST Status: DNR, Comfort Measures Performance Status: Patient has been declining functionally, has been up less, now is unable to swallow, his weak consulting services associate, with less scratching but is still tremulous when excited. Patient is dependent on caregivers for all ADLs. Patient has been mostly bedbound through the week. - Palliative Care Discussion: Reviewed patient findings with Charlee, patient's daughter and Terra SPEAR. Patient presents acutely with aspiration pneumonia, dehydrated, and eminently transitioning. She is struggling with decision about treating, reviewed patient with most likely not respond, and be significantly traumatized by transfer. Reassured and reaffirmed focus on comfort and allowing natural , would be appropriate at this point. She is feeling uncomfortable making this decision on her own, so we did have a family conference on the phone with her brother Donnell and her sister Angi, reviewed findings, and my recommendations transition to hospice and comfort measures, they are in agreement. Patient's hospice notebook from previous admit present, reviewed current signs and symptoms and expected ongoing decline. Working with hospice of [facility] to urgently admit. Time spent in life review with Charlee, this is been a long journey for her 20 years, plus the loss and traumatic of her mother. Her mother though made her own decision, this is been more complex for her to have the final say. Patient has had a wonderful and full colorful life despite his Asperger's, and was very close with Charlee. Discussed prognosis mostly hours to days, the patient certainly has significant resilience could be longer. Recommended focus on comfort and relief of suffering. Impression and Recommendations - Palliative Care Impression: This is a 72-year-old gentleman with frontal temporal lobe dementia, who has had a long and extensive journey with his disease. Over the last several weeks though he has demonstrated functional and cognitive decline. With increased trouble with swallowing, clearing secretions, weight loss, and recurrent aspiration. Today he presents with aspiration pneumonia, dehydration, and unable to swallow. Recommendation and transition to hospice with focus on comfort measures and ease of . Recommendations/Counseling Done: 1. Aspiration pneumonia. Patient has been high risk has been recurrent aspirating though has not developed pneumonia prior to this. Actuating as far as alertness, coughing, choking and intake over this last week. Patient currently unable to take antibiotics, counseling regarding patient's fragile status and ongoing decline, and recommendation for comfort measures and transition to hospice. Patient with mild respiratory distress with increased respiratory rate. No cough nor secretions at this point, counseling provided regarding morphine sulfate 0.25 mils every 2 hours as needed, offered to give him a dose as I was concerned regarding discomfort. They prefer at this point in time to work with distraction and calming, given the level of discomfort at this point of just adjusting to transitioning to dying, will have the hospice team follow-up. Written instructions given though and reviewed how to use the morphine, demonstrated and had return demonstration set up the stopper. Showed where to give it in the mouth. And what the indicators were before. Instructed if patient were to have increased fever or discomfort, can use acetaminophen suppositories. 3. Frontal lobe dementia. Patient with just small tremors, some agitation and excitement with increased stimulation. They are playing classical music, primary caregiver Amanda at bedside, very reassuring the patient. Instructed on how to use Lorazepam 0.5 mg every 4-6 hours if needed for sedation or comfort to question put in beautifully. Verbalized understanding, Charlee concern may have had a bad reaction in the past, though had interacted with the [facility] will continue to evaluate. 4. Advanced care planning. Patient with poor prognosis, hours to days, discussed transition to comfort measures and hospice team. Family conference provided with all 3 children, and agreement and relief of suffering. Report and handoff provided to medical regional medical director, awaiting final information regarding transition to hospice team. Daughter at this point is planning to stay at bedside, with caregiver support. 2. Time Spent: 75 minutes with getting 50% of this done in counseling, family conference, establishing goals of care, coordination of care with hospice team and hospice medical office specialist as well as caregivers at bedside
== END 2018-07-31 08:31 | disposition home or self-care (01) ==
LOC: PC 08:30
PROVIDERS: ATTEND Nurse Practitioner Adult Health
DX: Z51.5 Encounter for palliative care (principal); J69.0 Pneumonitis due to inhalation of food and vomit; E86.0 Dehydration; G31.09 Other frontotemporal neurocognitive disorder; F02.81 Dementia in other diseases classified elsewhere, unspecified severity, with behavioral disturbance; R13.10 Dysphagia, unspecified; K02.9 Dental caries, unspecified; L89.221 Pressure ulcer of left hip, stage 1; Z74.01 Bed confinement status; Z66 Do not resuscitate
CPT/HCPCS: 99350